=== PATIENT | female | born 1955 | race Caucasian/White ===

== ENCOUNTER 2017-12-06 16:06 | Inpatient (IN) | payer BC ==
--- NOTE | 2017-12-06 16:53 | PDOC ---
History of Present Illness - General History Source: Patient Exam Limitations: No Limitations - History of Present Illness Initial Comments: 12/06/17 17:52 The patient is a 62 year old female, with a significant PMH of Afib, Nonobstructive Diabetes, HTN and Hyperlipidemia who presents to the emergency department with Lightheadedness today. The patient reports she had 2 episodes of lightheadedness accompanied with jitteriness, nervousness, which is the primary reason for seeking care today. The patient reports shes been having a productive cough with yellow phlegm for the past one month. The patient reports going to Dr. Ureña about a month ago to get her cough checked out and was diagnosed with pneumonia on 11/26 and again on repeat X-ray on 12/04. She was prescribed on antibiotics and prednisone. She also reports the use of albuterol which she states opens up her lungs. The patient reports SOB during episodes of coughing, lying down which is especially worse today. The patient also reports chest pain and chest tightness when lying flat. The patient reports she has experienced chills but denies fever. Denies fever loss of conscious, head injury, or any trauma. The patient denies headache and dizziness. Denies fever, nausea, vomit, diarrhea and constipation. Denies dysuria, frequency, urgency and hematuria. Allergies: NKA Social history: Former Smoker and denies the use to alcohol or recreational drugs PCP: Dr. Adeline Uerña <Homa Jay - Last Filed: 12/06/17 18:12> <Carol Barclay - Last Filed: 12/06/17 19:03> - General Chief Complaint: Lightheaded Stated Complaint: RESPIRATORY Time Seen by Provider: 12/06/17 16:53 Past History <Homa Jay - Last Filed: 12/06/17 18:12> - Past Medical History Cardiac Disorders: Yes (A-FIB) COPD: No Diabetes: Yes HTN: Yes - Suicide/Smoking/Psychosocial Hx Smoking Status: Yes Smoking History: Former smoker Have you smoked in the past 12 months: No Number of Cigarettes Smoked Daily: 0 If you are a former smoker, when did you quit?: 20YRS AGO Information on smoking cessation initiated: No Hx Alcohol Use: No Drug/Substance Use Hx: No <Carol Barclay - Last Filed: 12/06/17 19:03> - Past Medical History Allergies/Adverse Reactions: Allergies Allergy/AdvReac Type Severity Reaction Status Date / Time No Known Allergies Allergy Verified 12/06/17 16:11 Home Medications: Ambulatory Orders Atorvastatin Ca [Lipitor (*)] 10 mg PO HS 02/17/13 metFORMIN HCL [Glucophage] 500 mg PO BID 02/17/13 Aspirin [ASA -] 81 mg PO DAILY 12/06/17 Cholecalciferol (Vitamin D3) [Vitamin D3 -] 1,000 unit PO DAILY 12/06/17 Review of Systems - Review of Systems Able to Perform ROS?: Yes Comments:: 12/06/17 17:54 GENERAL/CONSTITUTIONAL: (+) chills No fever. No weakness. HEAD, EYES, EARS, NOSE AND THROAT: No change in vision. No ear pain or discharge. No sore throat. CARDIOVASCULAR: (+) chest pain and shortness of breath. RESPIRATORY: (+) Productive cough with yellow phlegm. wheezing, or hemoptysis. GASTROINTESTINAL: No nausea, vomiting, diarrhea or constipation. GENITOURINARY: No dysuria, frequency, or change in urination. MUSCULOSKELETAL: No joint or muscle swelling or pain. No neck or back pain. SKIN: No rash NEUROLOGIC: (+) Lightheadedness. No headache, vertigo, loss of consciousness, or change in strength/sensation. ENDOCRINE: No increased thirst. No abnormal weight change. HEMATOLOGIC/LYMPHATIC: No anemia, easy bleeding, or history of blood clots. ALLERGIC/IMMUNOLOGIC: No hives or skin allergy. <Homa Jay - Last Filed: 12/06/17 18:12> *Physical Exam - Vital Signs Last Vital Signs Temp Pulse Resp BP Pulse Ox 98 F 85 19 147/81 98 12/06/17 16:11 12/06/17 16:11 12/06/17 16:11 12/06/17 16:11 12/06/17 16:11 - Physical Exam Comments: 12/06/17 18:04 GENERAL: Awake, alert, and fully oriented, in no acute distress HEAD: No signs of trauma EYES: PERRLA, EOMI, sclera anicteric, conjunctiva clear ENT: Auricles normal inspection, hearing grossly normal, nares patent, oropharynx clear without exudates. Moist mucosa NECK: Normal ROM, supple, no lymphadenopathy, JVD, or masses LUNGS: Breath sounds equal, clear to auscultation bilaterally. No wheezes, and no crackles HEART: Regular rate and rhythm, normal S1 and S2, no murmurs, rubs or gallops ABDOMEN: Soft, nontender, normoactive bowel sounds. No guarding, no rebound. No masses EXTREMITIES: Normal range of motion, no edema. No clubbing or cyanosis. No cords, erythema, or tenderness NEUROLOGICAL: Cranial nerves II through XII grossly intact. Normal speech. SKIN: Warm, Dry, normal turgor, no rashes or lesions noted. <Homa Jay - Last Filed: 12/06/17 18:12> - Vital Signs Last Vital Signs Temp Pulse Resp BP Pulse Ox 98 F 85 19 147/81 98 12/06/17 16:11 12/06/17 16:11 12/06/17 16:11 12/06/17 16:11 12/06/17 16:11 <Carol Barclay - Last Filed: 12/06/17 19:03> Heart Score/ECG Review - ECG Intrepretation Comment:: 12/06/17 18:12 The ECG was read by Dr. Barclay at 18:09pm Atrial Fibrillation Vent rate: 93 bpm QTc: 469 ms <Homa Jay - Last Filed: 12/06/17 18:12> ED Treatment Course - LABORATORY CBC & Chemistry Diagram: 12/06/17 18:08 12/06/17 18:08 <Carol Barclay - Last Filed: 12/06/17 19:03> Medical Decision Making - Medical Decision Making 12/06/17 18:25 Pt presents to the ED complaining of cough and shortness of breath that have been persistent for over a month despite multiple courses of antibiotics for pneumonia. Radiologic evidence of PNA from 12/04. Patient denies fever, nausea or vomiting, but does complain of persistent cough, shortness of breath and lightheadness. Will check labs and admit to medicine for persistent PNA. <Carol Barclay - Last Filed: 12/06/17 19:03> *DC/Admit/Observation/Transfer - Attestations Scribe Attestion: 12/06/17 18:04 Documentation prepared by Homa Jay, acting as medical auditor for Carol Barclay MD. <Homa Jay - Last Filed: 12/06/17 18:12> - Discharge Dispostion Admit: Yes <Carol Barclay - Last Filed: 12/06/17 19:03> Diagnosis at time of Disposition: Pneumonia Qualifiers: Pneumonia type: due to unspecified organism Laterality: right Lung location: middle lobe of lung Qualified Code(s): J18.1 - Lobar pneumonia, unspecified organism - Discharge Dispostion Condition at time of disposition: Good - Referrals Referrals: Vanessa Coreas MD [Primary Care Provider] - - Patient Instructions - Post Discharge Activity
[2017-12-06 18:22] LABS: BASO % 0.3 % (0-2.0); EOS % 1.6 % (0-4.5); HEMATOCRIT 45.7 % (32.4-45.2); HEMOGLOBIN 14.9 GM/dL (10.7-15.3); MCH 28.9 pg (25.7-33.7); MCHC 32.7 g/dl (32.0-36.0); MEAN CELL VOLUME 88.3 fl (80-96); MEAN PLT VOLUME 7.2 fl (7.5-11.1); NEUT % 49.1 % (42.8-82.8); PLATELET COUNT 362 K/MM3 (134-434); RBC 5.17 M/mm3 (3.60-5.2); RDW 14.2 % (11.6-15.6); WHITE BLOOD COUNT 10.5 K/mm3 (4.0-10.0)
[2017-12-06 18:25] LABS: URINE APPEARANCE CLEAR; URINE BILIRUBIN NEGATIVE (<2.0 mg/dL); URINE BLOOD NEGATIVE (NEGATIVE); URINE COLOR COLORLESS; URINE GLUCOSE (UA) NEGATIVE (NEGATIVE); URINE KETONE NEGATIVE (NEGATIVE); URINE LEUK ESTERASE NEGATIVE (NEGATIVE); URINE NITRITE NEGATIVE (NEGATIVE); URINE PROTEIN NEGATIVE (NEGATIVE); URINE UROBILINOGEN NEGATIVE mg/dL (0.2-1.0)
[2017-12-06 18:46] LABS: ANION GAP 10 (8-16); BILIRUBIN,TOTAL 0.3 mg/dL (0.2-1.0); BLOOD UREA NITROGEN 14 mg/dL (7-18); CALCIUM 9.6 mg/dL (8.5-10.1); CHLORIDE 102 mmol/L (98-107); CO2 27 mmol/L (21-32); CREATININE 0.8 mg/dL (0.55-1.02); GLUCOSE,RANDOM 119 mg/dL (74-106); SGOT/AST 11 U/L (15-37); SGPT/ALT 30 U/L (12-78); SODIUM 139 mmol/L (136-145)
[2017-12-06 18:50] LABS: ALK PHOS 61 U/L (45-117)
[2017-12-06] MEDS ORDERED: CEFTRIAXONE 1,000 MG in DEXTROSE 5%-WATER - 50 ML IVPB ONE (19:02)
[2017-12-06] MEDS ORDERED: SODIUM CHLORIDE 0.9% 500 ML INFUS.BAG IV ONE (19:08)
[2017-12-06] MEDS ORDERED: CEFTRIAXONE 1 GM/50 ML BAG ONE (19:17)
[2017-12-06] MEDS ORDERED: ACETAMINOPHEN 325 MG TABLET (FP) PO PRN (20:19)
[2017-12-06] MEDS ORDERED: ALBUTEROL SO4 2.5/IPRATROPIUM 0.5 INH SOL 3 ML VIAL.NEB. NEB PRN (20:23)
[2017-12-06] MEDS ORDERED: predniSONE 20 MG TABLET (UD) PO ONE (20:26)
[2017-12-06] MEDS ORDERED: ATORVASTATIN CA 10 MG TABLET (FP) PO ONE (20:28)
--- NOTE | 2017-12-06 20:51 | HP ---
CHIEF COMPLAINT: PCP: HISTORY OF PRESENT ILLNESS: 62 y/o F presented to ED c/o productive cough with yellow sputum with associated chest pain in lower posterior thorax for one month. Patient reports being on Azithromycin and then levofloxacin currently in her second rounds of treatment with no improvement. She also was prescribed prednisone and albuterol previously. Recent Travel:None PAST MEDICAL HISTORY: DM2 on metformin, DLP, low vitamin D PAST SURGICAL HISTORY:Left shoulder surgery s/p dislocation Social History: Smoking:No, smokes Alcohol:None Drugs: None Family History: Allergies No Known Allergies Allergy (Verified 12/06/17 16:11) HOME MEDICATIONS: Home Medications Medication Instructions Recorded Atorvastatin Ca [Lipitor (*)] 10 mg PO HS 02/17/13 metFORMIN HCL [Glucophage] 500 mg PO BID 02/17/13 Aspirin [ASA -] 81 mg PO DAILY 12/06/17 Cholecalciferol (Vitamin D3) 1,000 unit PO DAILY 12/06/17 [Vitamin D3 -] REVIEW OF SYSTEMS CONSTITUTIONAL: chills, Absent: fever, diaphoresis, generalized weakness, malaise, loss of appetite, weight change HEENT: nasal congestion Absent: rhinorrhea, , throat pain, throat swelling, difficulty swallowing, mouth swelling, ear pain, eye pain, visual changes CARDIOVASCULAR: Absent: chest pain, syncope, palpitations, irregular heart rate, lightheadedness , peripheral edema RESPIRATORY: Absent: cough, shortness of breath, dyspnea with exertion, orthopnea, wheezing, stridor, hemoptysis GASTROINTESTINAL: Absent: abdominal pain, abdominal distension, nausea, vomiting, diarrhea, constipation, melena, hematochezia GENITOURINARY: Absent: dysuria, frequency, urgency, hesitancy, hematuria, flank pain, genital pain MUSCULOSKELETAL: Absent: myalgia, arthralgia, joint swelling, back pain, neck pain SKIN: Absent: rash, itching, pallor HEMATOLOGIC/IMMUNOLOGIC: Absent: easy bleeding, easy bruising, lymphadenopathy, frequent infections ENDOCRINE: Absent: unexplained weight gain, unexplained weight loss, heat intolerance, cold intolerance NEUROLOGIC: Absent: headache, focal weakness or paresthesias, dizziness, unsteady gait, seizure, mental status changes, bladder or bowel incontinence PSYCHIATRIC: Absent: anxiety, depression, suicidal or homicidal ideation, hallucinations. PHYSICAL EXAMINATION Vital Signs - 24 hr 12/06/17 12/06/17 16:11 20:19 Temperature 98 F 97.8 F Pulse Rate 85 Pulse Rate [ 96 H Left Radial] Respiratory 19 18 Rate Blood Pressure 147/81 Blood Pressure 125/80 [Right Arm] O2 Sat by Pulse 98 100 Oximetry (%) GENERAL: Awake, alert, and fully oriented, in no acute distress. HEAD: Normal with no signs of trauma. EYES: Pupils equal, round and reactive to light, extraocular movements intact, sclera anicteric, conjunctiva clear. No lid lag. EARS, NOSE, THROAT: Ears normal, nares patent, erythematous nasal turbinates, oropharynx clear without exudates. Moist mucous membranes. NECK: Normal range of motion, supple without lymphadenopathy, JVD, or masses. LUNGS: Breath sounds equal, clear to auscultation bilaterally. Wheezes, and no crackles. No accessory muscle use. HEART: Regular rate and rhythm, normal S1 and S2 without murmur, rub or gallop. ABDOMEN: Soft, nontender, not distended, normoactive bowel sounds, no guarding, no rebound, no masses. No hepatomegaly or splenomegaly. MUSCULOSKELETAL: Normal range of motion at all joints. No bony deformities or tenderness. No CVA tenderness. UPPER EXTREMITIES: 2+ pulses, warm, well-perfused. No cyanosis. No clubbing. No peripheral edema. LOWER EXTREMITIES: 2+ pulses, warm, well-perfused. No calf tenderness. No peripheral edema. NEUROLOGICAL: Cranial nerves II-XII intact. Normal speech. Normal gait. PSYCHIATRIC: Cooperative. Good eye contact. Appropriate mood and affect. SKIN: Warm, dry, normal turgor, no rashes or lesions noted, normal capillary refill. Laboratory Results - last 24 hr 12/06/17 12/06/17 12/06/17 18:08 18:08 18:08 WBC 10.5 H D RBC 5.17 Hgb 14.9 D Hct 45.7 H MCV 88.3 MCH 28.9 MCHC 32.7 RDW 14.2 Plt Count 362 MPV 7.2 L Neutrophils % 49.1 Lymphocytes % 40.0 D Monocytes % 9.0 Eosinophils % 1.6 Basophils % 0.3 Sodium 139 Potassium 4.0 Chloride 102 Carbon Dioxide 27 Anion Gap 10 BUN 14 Creatinine 0.8 Creat Clearance w eGFR > 60 Random Glucose 119 H Lactic Acid 2.2 H* Calcium 9.6 Total Bilirubin 0.3 D AST 11 L ALT 30 Alkaline Phosphatase 61 Creatine Kinase 36 Troponin I < 0.02 Total Protein 8.0 Albumin 4.0 Urine Color Urine Appearance Urine pH Ur Specific [place] Urine Protein Urine Glucose (UA) Urine Ketones Urine Blood Urine Nitrite Urine Bilirubin Urine Urobilinogen Ur Leukocyte Esterase 12/06/17 18:08 WBC RBC Hgb Hct MCV MCH MCHC RDW Plt Count MPV Neutrophils % Lymphocytes % Monocytes % Eosinophils % Basophils % Sodium Potassium Chloride Carbon Dioxide Anion Gap BUN Creatinine Creat Clearance w eGFR Random Glucose Lactic Acid Calcium Total Bilirubin AST ALT Alkaline Phosphatase Creatine Kinase Troponin I Total Protein Albumin Urine Color Colorless Urine Appearance Clear Urine pH 7.0 D Ur Specific [place] 1.002 Urine Protein Negative Urine Glucose (UA) Negative Urine Ketones Negative Urine Blood Negative Urine Nitrite Negative Urine Bilirubin Negative Urine Urobilinogen Negative Ur Leukocyte Esterase Negative ASSESSMENT/PLAN: Bronchitis r/o Pneumonia Ceftriaxone 1G q12h Duoneb q6h Prednisone 40mg daily Sputum culture Lactic acidosis - Continue IVF NS and Repeat lactic acid Possibly secondary to infection vs medication, cotninue to hold metformin. DM2- RISS ACHS DLP- Atorvastatin 10mg Visit type - Emergency Visit Emergency Visit: Yes ED Registration Date: 12/06/17 Care time: The patient presented to the Emergency Department on the above date and was hospitalized for further evaluation of their emergent condition. - New Patient This patient is new to me today: Yes Date on this admission: 12/11/17 - Critical Care Critical Care patient: No Hospitalist Screening - Colonoscopy Questionnaire Colonoscopy Questionnaire: Colonoscopy Questionnaire
[2017-12-06] MEDS ORDERED: predniSONE 20 MG TABLET (UD) ONE (22:45)
[2017-12-06] MEDS: INSULIN SLIDING SCALE (NOVOLOG) 1 VIAL SQ SCH (23:14)
[2017-12-07 00:28] VITALS: BMI 35.9
[2017-12-07] MEDS: SODIUM CHLORIDE 1,000 ML IV SCH ×2 (00:35→20:03)
[2017-12-07] MEDS: INSULIN SLIDING SCALE (NOVOLOG) 1 VIAL SQ SCH ×5 (06:30→22:49)
[2017-12-07 09:14] LABS: HEMOGLOBIN 13.8 GM/dL (10.7-15.3); MCH 29.2 pg (25.7-33.7); MCHC 32.8 g/dl (32.0-36.0); MEAN CELL VOLUME 89.1 fl (80-96); MEAN PLT VOLUME 6.9 fl (7.5-11.1); PLATELET COUNT 363 K/MM3 (134-434); RBC 4.71 M/mm3 (3.60-5.2); RDW 14.4 % (11.6-15.6); WHITE BLOOD COUNT 9.1 K/mm3 (4.0-10.0)
--- NOTE | 2017-12-07 09:19 | EKG ---
Test Reason : Blood Pressure : / mmHG Vent. Rate : 103 BPM Atrial Rate : 115 BPM P-R Int : 000 ms QRS Dur : 114 ms QT Int : 372 ms P-R-T Axes : 000 -04 126 degrees QTc Int : 487 ms ATRIAL FLUTTER WITH RAPID VENTRICULAR RESPONSE INCOMPLETE LEFT BUNDLE BRANCH BLOCK MODERATE VOLTAGE CRITERIA FOR LVH, MAY BE NORMAL VARIANT ABNORMAL ECG Confirmed by MIGUEL ROBLES, ALLIE ([id number]) on 12/07/2017 9:18:37 AM Referred By: Confirmed By:ALLIE RIVERA MD
[2017-12-07] MEDS ORDERED: INSULIN (NOVOLOG) ASPART 100 UNITS/ML 10ML VIAL ONE ×2 (09:24→17:13)
[2017-12-07] MEDS ORDERED: DEXTROSE 5%-WATER - 50 ML IVPB ONE (10:53)
[2017-12-07] MEDS ORDERED: cefTRIAXone SODIUM 1 GM VIAL ONE (10:53)
[2017-12-07] MEDS: ASPIRIN 81 MG CHEWABLE TABLETS PO SCH (10:56)
[2017-12-07] MEDS: CEFTRIAXONE 1 GM in DEXTROSE 5%-WATER - 50 ML IVPB SCH (11:00)
--- NOTE | 2017-12-07 12:36 | PN ---
Progress Note, Physician Chief Complaint: Pt has been coughing for more than a month-- now its more productove Has received antibiotics in the past This time she has dizziness, felt jittery and lightheaded No nausea no chest pain, palpitations no fever - Current Medication List Current Medications: Active Medications Acetaminophen (Tylenol -) 650 mg PO Q6H PRN PRN Reason: FEVER Last Admin: 12/07/17 06:30 Dose: 650 mg Albuterol/Ipratropium (Duoneb -) 1 amp NEB Q6H PRN PRN Reason: SHORTNESS OF BREATH Aspirin (Asa -) 81 mg PO DAILY [facility] Last Admin: 12/07/17 10:56 Dose: 81 mg Atorvastatin Calcium (Lipitor -) 10 mg PO HS [facility] Ceftriaxone Sodium 1 gm/ (Dextrose) 50 mls @ 100 mls/hr IVPB DAILY [facility] Last Admin: 12/07/17 11:00 Dose: 100 mls/hr Sodium Chloride (Normal Saline -) 1,000 mls @ 100 mls/hr IV ASDIR [facility] Last Admin: 12/07/17 00:35 Dose: 100 mls/hr Insulin Aspart (Novolog Vial Sliding Scale -) 1 vial SQ ACHS [facility] PRN Reason: Protocol Last Admin: 12/07/17 12:08 Dose: Not Given - Objective Vital Signs: Vital Signs Temperature 98.5 F 12/07/17 06:00 Pulse Rate 104 H 12/07/17 06:00 Respiratory Rate 20 12/07/17 06:00 Blood Pressure 150/73 12/07/17 06:00 O2 Sat by Pulse Oximetry (%) 97 12/07/17 00:18 Constitutional: Yes: No Distress Cardiovascular: Yes: Pulse Irregular. No: Murmur Respiratory: Yes: Diminished Gastrointestinal: Yes: Normal Bowel Sounds, Soft, Abdomen, Obese. No: Tenderness Edema: No Labs: CBC, BMP 12/07/17 08:30 12/06/17 18:08 Problem List - Problems (1) New onset a-fib Code(s): I48.91 - UNSPECIFIED ATRIAL FIBRILLATION (2) Diabetes Code(s): E11.9 - TYPE 2 DIABETES MELLITUS WITHOUT COMPLICATIONS (3) Pneumonia Code(s): J18.9 - PNEUMONIA, UNSPECIFIED ORGANISM Qualifiers: Pneumonia type: due to unspecified organism Laterality: right Lung location: middle lobe of lung Qualified Code(s): J18.1 - Lobar pneumonia, unspecified organism Assessment/Plan PLAN New onset Afib start Lovenox Rate control with Toprol Transfer to Tele Cardiology eval IV antibiotics-- empiric-- will check CT chest Echo check Thyroid function tests and cardiac enzymes Albuterol as needed
[2017-12-07] MEDS: metoPROLOL SUCCINATE 25 MG TAB.SR.24H (FP) PO SCH (14:56)
[2017-12-07] MEDS: ENOXAPARIN NA (PORCINE) 80 MG/0.8 ML DISP.SYRIN SQ SCH ×2 (16:00→22:50)
[2017-12-07] MEDS: metFORMIN HCL 500 MG TABLET (FP) PO SCH (17:15)
[2017-12-07] MEDS ORDERED: PT OWN MED DRAWER 7, Y5N ONE (20:10)
[2017-12-07] MEDS ORDERED: ATORVASTATIN CA 10 MG TABLET (FP) PO SCH (22:00)
[2017-12-08] MEDS: SODIUM CHLORIDE 1,000 ML IV SCH ×3 (00:15→16:58)
[2017-12-08] MEDS: INSULIN SLIDING SCALE (NOVOLOG) 1 VIAL SQ SCH ×4 (06:23→21:13)
[2017-12-08] MEDS: metFORMIN HCL 500 MG TABLET (FP) PO SCH ×2 (06:25→16:58)
[2017-12-08] MEDS ORDERED: cefTRIAXone SODIUM 1 GM VIAL ONE (09:21)
[2017-12-08] MEDS ORDERED: DEXTROSE 5%-WATER - 50 ML IVPB ONE (09:22)
[2017-12-08] MEDS: metoPROLOL SUCCINATE 25 MG TAB.SR.24H (FP) PO SCH (09:32)
[2017-12-08] MEDS: ASPIRIN 81 MG CHEWABLE TABLETS PO SCH (09:32)
[2017-12-08] MEDS: ENOXAPARIN NA (PORCINE) 80 MG/0.8 ML DISP.SYRIN SQ SCH (09:32)
[2017-12-08] MEDS: CEFTRIAXONE 1 GM in DEXTROSE 5%-WATER - 50 ML IVPB SCH (09:32)
--- NOTE | 2017-12-08 09:45 | CON.CARD ---
Consult Consult Specialty:: cardio - History of Present Illness Chief Complaint: cough, jittery/LH History of Present Illness: 62 yo female presented with cough. has cough for 1 mo, persists despite ABX tx as outpt. became more productive. recently noted she felt jittery and lightheaded when walking. mostly only sob during coughing fits, ? at times sob without coughing she isn't certain. + audible wheezing at times--o/w denies signif asthma/wheeze history. no cp. no ankle/feet swelling. noted to be in rapid AF on 12/[address] mcclelland--toprol and lovenox started pt previously was followed by dr haynes cardiology, recently switched to dr cooley prior h/o HTN, on meds for long time. presyncope with SBP 100s range in 2017. meds d/c'd, sx's resolved, outpt BP range was stable. PMH: HTN JANIYA--on cpap HPL DM2 - Past Medical History ...: No - Alcohol/Substance Use Hx Alcohol Use: No - Smoking History Smoking history: Former smoker Have you smoked in the past 12 months: No Aproximately how many cigarettes per day: 0 If you are a former smoker, when did you quit?: 20YRS AGO Home Medications - Allergies Allergies/Adverse Reactions: Allergies Allergy/AdvReac Type Severity Reaction Status Date / Time No Known Allergies Allergy Verified 12/06/17 16:11 - Home Medications Home Medications: Ambulatory Orders Atorvastatin Ca [Lipitor (*)] 10 mg PO HS 02/17/13 metFORMIN HCL [Glucophage] 500 mg PO BID 02/17/13 Aspirin [ASA -] 81 mg PO DAILY 12/06/17 Cholecalciferol (Vitamin D3) [Vitamin D3 -] 1,000 unit PO DAILY 12/06/17 Review of Systems - Review of Systems Constitutional: denies: Chills, Fever Eyes: denies: Eye Pain HENT: denies: Nasal Congestion Neck: denies: Stiffness Cardiovascular: denies: Palpitations Respiratory: denies: Orthopnea, PND Gastrointestinal: denies: Diarrhea, Rectal Bleeding Genitourinary: denies: Burning, Hematuria Musculoskeletal: denies: Muscle Pain Integumentary: denies: Rash Neurological: reports: Dizziness. denies: Numbness, Seizure, Syncope Endocrine: denies: Excessive Sweating Hematology/Lymphatic: denies: Excessive Bleeding Vital Signs: Vital Signs Temperature 97.7 F 12/08/17 06:00 Pulse Rate 93 H 12/08/17 06:00 Respiratory Rate 18 12/08/17 06:00 Blood Pressure 120/54 12/08/17 06:00 O2 Sat by Pulse Oximetry (%) 98 12/07/17 20:15 Constitutional: Yes: Well Nourished, No Distress Eyes: No: Sclera Icterus HENT: No: Nasal Congestion Neck: No: Decreased ROM Respiratory: Yes: CTA Bilaterally. No: Accessory Muscle Use, Rales, Wheezes Gastrointestinal: Yes: Normal Bowel Sounds. No: Distention, Hepatomegaly, Palpable Mass, Tenderness Cardiovascular: Yes: Pulse Irregular JVD: No Carotid Bruit: No PMI: Non-Displaced Heart Sounds: Yes: S1, S2. No: Gallop Murmur: No: Systolic Murmur, Diastolic Murmur Musculoskeletal: Yes: Other (No kyphosis) Extremities: No: Cold, Cyanosis Edema: No Peripheral Pulses: 2+ Left Carotid, 2+ Right Carotid, 2+ Left Doralis Pedis, 2+ Right Dorsalis Pedis Integumentary: No: Jaundice Neurological: Yes: Alert, Oriented (x3) Psychiatric: No: Agitated - Other Data Labs, Other Data: CBC, BMP 12/07/17 08:30 12/06/17 18:08 Troponin, BNP 12/07/17 13:30 Troponin I < 0.02 Troponin, BNP 12/07/17 13:30 Troponin I < 0.02 Laboratory Tests 12/06/17 12/06/17 12/07/17 18:08 20:48 08:30 WBC 9.1 Hgb 13.8 Plt Count 363 Sodium 139 Potassium 4.0 Carbon Dioxide 27 BUN 14 Creatinine 0.8 Lactic Acid 2.6 H* AST 11 L ALT 30 Troponin I < 0.02 12/07/17 13:30 WBC Hgb Plt Count Sodium Potassium Carbon Dioxide BUN Creatinine Lactic Acid AST ALT Troponin I < 0.02 Assessment/Plan Echo 10/18: nl EF. nl RV. +LAE. Stress Echo 2016: 10 METs. + ST's. no ischemia. MPI 2013: 7 METs. + STs (non-diagnostic vs baseline). no ischemia. nl EF. Carotids 10/18: minimal, nonob plaque Holter 11/15: NSR, freq APCs, brief atrial runs. no laura.s ECG 12/06: rapid atrial flutter. LVH with repol abn.s; ST depressions slightly more pronounced vs prior office ECG 10/2016. no path q's chest CT: report pending tele: afib to 120s 12/07 pm. 12/08 HRs 80s-100s with brief 130s at 9:04 am afib: -HR rapid, toprol 25 started here. HRs have responded (again rapid this am just prior to AM toprol dose due). -change toprol to 50mg am, 25mg pm -would minimize albuterol use to the extent possible -TSH borderline low--per pmd -if HR well controlled with ambulation tomorrow, and no more sx's, will plan to send home on metoprolol (if wheezing persists once respiratory infection resolves, or incr sob develops here, may need to reduce BB dose and add diltiazem). -CHADS VASC 3, to become 2 at her next birthday. pt denies h/o falls or hi risk for such, no prior PUD or GIB--agree with AC. -stop lovenox and ASA. start eliquis. -no sx's of acute cardiac ischemia. trop neg x 2. no ischemia 2016. -echo WNL 10/18--will rpt study productive cough, bronchitis vs PNA: -per pmd HTN: -presyncope on prior med regimen -office bp recently stable off meds, with resolution of dizzy sx's -bp's here currently controlled HPL: -cont home atorva DM: -on orals -per pmd
--- NOTE | 2017-12-08 11:01 | PN ---
Progress Note, Physician History of Present Illness: pt seen/ examined.. feels better decreased cough - Current Medication List Current Medications: Active Medications Acetaminophen (Tylenol -) 650 mg PO Q6H PRN PRN Reason: FEVER Last Admin: 12/07/17 06:30 Dose: 650 mg Albuterol/Ipratropium (Duoneb -) 1 amp NEB Q6H PRN PRN Reason: SHORTNESS OF BREATH Last Admin: 12/08/17 06:40 Dose: 1 amp Aspirin (Asa -) 81 mg PO DAILY [facility] Last Admin: 12/08/17 09:32 Dose: 81 mg Atorvastatin Calcium (Lipitor -) 10 mg PO HS [facility] Last Admin: 12/07/17 22:50 Dose: 10 mg Enoxaparin Sodium (Lovenox -) 80 mg SQ BID [facility] Last Admin: 12/08/17 09:32 Dose: 80 mg Ceftriaxone Sodium 1 gm/ (Dextrose) 50 mls @ 100 mls/hr IVPB DAILY [facility] Last Admin: 12/08/17 09:32 Dose: 100 mls/hr Sodium Chloride (Normal Saline -) 1,000 mls @ 100 mls/hr IV ASDIR [facility] Last Admin: 12/08/17 06:25 Dose: 100 mls/hr Insulin Aspart (Novolog Vial Sliding Scale -) 1 vial SQ ACHS [facility] PRN Reason: Protocol Last Admin: 12/08/17 06:23 Dose: Not Given Metformin HCl (Glucophage -) 500 mg PO BID@0700,1630 [facility] Last Admin: 12/08/17 06:25 Dose: 500 mg Metoprolol Succinate (Toprol Xl -) 25 mg PO DAILY [facility] Last Admin: 12/08/17 09:32 Dose: 25 mg - Objective Vital Signs: Vital Signs Temperature 100.0 F H 12/08/17 10:00 Pulse Rate 100 H 12/08/17 10:00 Respiratory Rate 18 12/08/17 10:00 Blood Pressure 131/71 12/08/17 10:00 O2 Sat by Pulse Oximetry (%) 98 12/08/17 09:00 Constitutional: Yes: No Distress, Calm Eyes: Yes: Conjunctiva Clear Neck: Yes: Supple Cardiovascular: Yes: Pulse Irregular. No: Regular Rate and Rhythm Respiratory: Yes: Diminished Gastrointestinal: Yes: Soft. No: Rectal Bleeding Edema: No Neurological: Yes: Alert Labs: CBC, BMP 12/07/17 08:30 12/06/17 18:08 - ....Imaging Cat Scan: Report Reviewed Problem List - Problems (1) Diabetes Code(s): E11.9 - TYPE 2 DIABETES MELLITUS WITHOUT COMPLICATIONS (2) New onset a-fib Code(s): I48.91 - UNSPECIFIED ATRIAL FIBRILLATION (3) Pneumonia Code(s): J18.9 - PNEUMONIA, UNSPECIFIED ORGANISM Qualifiers: Pneumonia type: due to unspecified organism Laterality: right Lung location: middle lobe of lung Qualified Code(s): J18.1 - Lobar pneumonia, unspecified organism Assessment/Plan New onset Afib Eliquis cardiology on case Rate control with Toprol continue present care monitor on tele abx for pneumonia will follow. daily oob- chair
[2017-12-08] MEDS ORDERED: metoPROLOL SUCCINATE 25 MG TAB.SR.24H (FP) PO ONE (11:22)
[2017-12-08] MEDS ORDERED: ALBUTEROL SO4 2.5/IPRATROPIUM 0.5 INH SOL 3 ML VIAL.NEB. NEB PRN (19:19)
[2017-12-08] MEDS ORDERED: SODIUM CHLORIDE 1,000 ML IV SCH (19:19)
[2017-12-08] MEDS ORDERED: metoPROLOL SUCCINATE 25 MG TAB.SR.24H (FP) PO SCH ×2 (22:00)
[2017-12-08] MEDS: APIXABAN 5 MG TABLET PO SCH (23:25)
[2017-12-08] MEDS: ATORVASTATIN CA 10 MG TABLET (FP) PO SCH (23:25)
[2017-12-09] MEDS: ACETAMINOPHEN 325 MG TABLET (FP) PO PRN ×2 (01:41→15:23)
[2017-12-09] MEDS: INSULIN SLIDING SCALE (NOVOLOG) 1 VIAL SQ SCH ×4 (06:08→23:24)
[2017-12-09] MEDS ORDERED: DEXTROSE 5%-WATER - 50 ML IVPB ONE (09:38)
[2017-12-09] MEDS ORDERED: cefTRIAXone SODIUM 1 GM VIAL ONE (09:38)
[2017-12-09] MEDS: CEFTRIAXONE 1 GM in DEXTROSE 5%-WATER - 50 ML IVPB SCH (09:41)
[2017-12-09] MEDS: APIXABAN 5 MG TABLET PO SCH ×2 (09:41→23:24)
[2017-12-09] MEDS: metFORMIN HCL 500 MG TABLET (FP) PO SCH ×2 (09:41→17:47)
--- NOTE | 2017-12-09 11:41 | PN ---
Progress Note, Physician Chief Complaint: feels well decreased cough no SOB has swelling in left hand, no pain no chest pain, palpitations no fever - Current Medication List Current Medications: Active Medications Acetaminophen (Tylenol -) 650 mg PO Q6H PRN PRN Reason: FEVER Last Admin: 12/09/17 01:41 Dose: 650 mg Albuterol/Ipratropium (Duoneb -) 1 amp NEB Q6H PRN PRN Reason: SHORTNESS OF BREATH Apixaban (Eliquis -) 5 mg PO BID [facility] Last Admin: 12/09/17 09:41 Dose: 5 mg Atorvastatin Calcium (Lipitor -) 10 mg PO HS [facility] Last Admin: 12/08/17 23:25 Dose: 10 mg Ceftriaxone Sodium 1 gm/ (Dextrose) 50 mls @ 100 mls/hr IVPB DAILY [facility] Last Admin: 12/09/17 09:41 Dose: 100 mls/hr Sodium Chloride (Normal Saline -) 1,000 mls @ 100 mls/hr IV ASDIR [facility] Last Admin: 12/08/17 23:25 Dose: 100 mls/hr Insulin Aspart (Novolog Vial Sliding Scale -) 1 vial SQ ACHS [facility] PRN Reason: Protocol Last Admin: 12/09/17 06:08 Dose: Not Given Metformin HCl (Glucophage -) 500 mg PO BID@0700,1630 [facility] Last Admin: 12/09/17 09:41 Dose: 500 mg Metoprolol Succinate (Toprol Xl -) 50 mg PO DAILY [facility] Last Admin: 12/09/17 09:41 Dose: 50 mg Metoprolol Succinate (Toprol Xl -) 25 mg PO HS [facility] Last Admin: 12/08/17 23:25 Dose: 25 mg - Objective Vital Signs: Vital Signs Temperature 98 F 12/09/17 08:43 Pulse Rate 90 12/09/17 08:43 Respiratory Rate 20 12/09/17 09:00 Blood Pressure 103/52 12/09/17 08:43 O2 Sat by Pulse Oximetry (%) 98 12/09/17 09:00 Constitutional: Yes: No Distress Cardiovascular: Yes: Pulse Irregular Respiratory: Yes: Diminished. No: Rales, Rhonchi, Wheezes Gastrointestinal: Yes: Normal Bowel Sounds, Soft, Abdomen, Obese. No: Tenderness Extremities: Yes: Other (left hand edema+, no tenderness, no erythema) Edema: No Labs: CBC, BMP 12/07/17 08:30 12/06/17 18:08 Problem List - Problems (1) New onset a-fib Code(s): I48.91 - UNSPECIFIED ATRIAL FIBRILLATION (2) Diabetes Code(s): E11.9 - TYPE 2 DIABETES MELLITUS WITHOUT COMPLICATIONS (3) Pneumonia Code(s): J18.9 - PNEUMONIA, UNSPECIFIED ORGANISM Qualifiers: Pneumonia type: due to unspecified organism Laterality: right Lung location: middle lobe of lung Qualified Code(s): J18.1 - Lobar pneumonia, unspecified organism Assessment/Plan PLAN New onset Afib on Eliquis Rate control with Toprol CT chest noted- d/w pt oob dc iv fluids Albuterol as needed
--- NOTE | 2017-12-09 12:03 | PN ---
Progress Note (short form) - Note Progress Note: CC: new onset afib S: no cp, palps, lightheadedness. still with sob, cough Current Medications Acetaminophen (Tylenol -) 650 mg PO Q6H PRN PRN Reason: FEVER Last Admin: 12/09/17 01:41 Dose: 650 mg Albuterol/Ipratropium (Duoneb -) 1 amp NEB Q6H PRN PRN Reason: SHORTNESS OF BREATH Apixaban (Eliquis -) 5 mg PO BID [facility] Last Admin: 12/09/17 09:41 Dose: 5 mg Atorvastatin Calcium (Lipitor -) 10 mg PO HS [facility] Last Admin: 12/08/17 23:25 Dose: 10 mg Ceftriaxone Sodium 1 gm/ (Dextrose) 50 mls @ 100 mls/hr IVPB DAILY [facility] Last Admin: 12/09/17 09:41 Dose: 100 mls/hr Insulin Aspart (Novolog Vial Sliding Scale -) 1 vial SQ ACHS [facility] PRN Reason: Protocol Last Admin: 12/09/17 06:08 Dose: Not Given Metformin HCl (Glucophage -) 500 mg PO BID@0700,1630 [facility] Last Admin: 12/09/17 09:41 Dose: 500 mg Metoprolol Succinate (Toprol Xl -) 50 mg PO DAILY [facility] Last Admin: 12/09/17 09:41 Dose: 50 mg Metoprolol Succinate (Toprol Xl -) 25 mg PO HS [facility] Last Admin: 12/08/17 23:25 Dose: 25 mg Vital Signs - 24 hr 12/08/17 12/08/17 12/08/17 14:00 21:00 22:00 Temperature 98.1 F 98.3 F Pulse Rate 88 94 H Respiratory 18 18 20 Rate Blood Pressure 115/61 137/57 O2 Sat by Pulse 98 Oximetry (%) 12/09/17 12/09/17 12/09/17 01:32 05:36 08:43 Temperature 98.6 F 98.7 F 98 F Pulse Rate 98 H 92 H 90 Respiratory 18 18 20 Rate Blood Pressure 110/56 124/66 103/52 O2 Sat by Pulse Oximetry (%) 12/09/17 09:00 Temperature Pulse Rate Respiratory 20 Rate Blood Pressure O2 Sat by Pulse 98 Oximetry (%) Intake & Output 12/07/17 12/08/17 12/09/17 12/10/17 07:59 07:59 07:59 07:59 Intake Total 900 1110 1870 Balance 900 1110 1870 Weight 184 lb 1 oz Constitutional: Yes: Well Nourished, No Distress Eyes: No: Sclera Icterus HENT: No: Nasal Congestion Neck: No: Decreased ROM Respiratory: Yes: diminshed air mov't. No: Accessory Muscle Use, Rales, Wheezes Gastrointestinal: Yes: Normal Bowel Sounds. No: Distention, Hepatomegaly, Palpable Mass, Tenderness Cardiovascular: Yes: Pulse Irregular JVD: No Carotid Bruit: No PMI: Non-Displaced Heart Sounds: Yes: S1, S2. No: Gallop Murmur: No: Systolic Murmur, Diastolic Murmur Musculoskeletal: Yes: Other (No kyphosis) Extremities: No: Cold, Cyanosis Edema: No Peripheral Pulses: 2+ Left Carotid, 2+ Right Carotid, 2+ Left Doralis Pedis, 2+ Right Dorsalis Pedis Integumentary: No: Jaundice Neurological: Yes: Alert, Oriented (x3) Psychiatric: No: Agitated - Other Data Labs, Other Data: no CBC, BMP today 12/07/17 08:30 12/06/17 18:08 Assessment/Plan Echo 10/18: nl EF. nl RV. +LAE. echo 11/2017: nl lv/rv size/fn. mod lae. 1+ mac/mr, mod tr. pasp 32. Stress Echo 2017: 10 METs. + ST's. no ischemia. MPI 2013: 7 METs. + STs (non-diagnostic vs baseline). no ischemia. nl EF. Carotids 10/18: minimal, nonob plaque Holter 11/15: NSR, freq APCs, brief atrial runs. no laura.s ECG 12/06: rapid atrial flutter. LVH with repol abn.s; ST depressions slightly more pronounced vs prior office ECG 10/2016. no path q's CT chest report reviewed: consolidation/ATX in RUL can be c/w PNA. trace peric effusion. tele: overall rate controlled afib. 62 yo with pmhx of basil on nasal cpap, niddm who p/w pna and new onset afib. afib: -HR rapid, toprol 25 started here. HRs have responded (again rapid in the am just prior to AM toprol dose due) --> changed toprol to 50mg am, 25mg pm -would minimize albuterol use to the extent possible -TSH borderline low--per pmd -if HR well controlled with ambulation tomorrow, and no more sx's, will plan to send home on metoprolol (if wheezing persists once respiratory infection resolves, or incr sob develops here, may need to reduce BB dose and add diltiazem). -CHADS VASC 3, to become 2 at her next birthday. pt denies h/o falls or hi risk for such, no prior PUD or GIB--agree with AC. -stopped lovenox and ASA. started eliquis. -no sx's of acute cardiac ischemia. trop neg x 2. no ischemia 2016. -echo WNL 10/18. Rpt study without sig abnormality, see above. - tsh abnormal but FT4 wnl. - 12/09: will try uptitrating toprol to 50 bid. lytes ordered for tomorrow. repletion prn. productive cough, bronchitis vs PNA: -per pmd HTN: -presyncope on prior med regimen -office bp recently stable off meds, with resolution of dizzy sx's -bp's here currently controlled, sometimes on lower end. monitor with uptitration of toprol. HPL: -cont home atorva lactic acidosis likely related to infection - resolved s/p abx, IVF basil - on cpap at home. consider resuming qhs while here if possible. DM: -on orals -per pmd
[2017-12-09] MEDS ORDERED: metoPROLOL SUCCINATE 25 MG TAB.SR.24H (FP) PO SCH (22:00)
[2017-12-09] MEDS ORDERED: PT OWN MED DRAWER 7, Y5N ONE (23:12)
[2017-12-09] MEDS: ATORVASTATIN CA 10 MG TABLET (FP) PO SCH (23:24)
[2017-12-10] MEDS: metFORMIN HCL 500 MG TABLET (FP) PO SCH (06:25)
[2017-12-10] MEDS: ACETAMINOPHEN 325 MG TABLET (FP) PO PRN (06:25)
[2017-12-10] MEDS: INSULIN SLIDING SCALE (NOVOLOG) 1 VIAL SQ SCH (06:26)
[2017-12-10 06:43] VITALS: BP 126/74; PULSE 99; TEMP 98.2
[2017-12-10 07:51] LABS: BASO % 0.6 % (0-2.0); EOS % 3.4 % (0-4.5); HEMATOCRIT 38.4 % (32.4-45.2); HEMOGLOBIN 12.6 GM/dL (10.7-15.3); LYMPH % 31.2 % (8-40); MCH 29.4 pg (25.7-33.7); MCHC 32.9 g/dl (32.0-36.0); MEAN CELL VOLUME 89.4 fl (80-96); MONO % 8.6 % (3.8-10.2); NEUT % 56.2 % (42.8-82.8); PLATELET COUNT 280 K/MM3 (134-434); RBC 4.29 M/mm3 (3.60-5.2); RDW 14.4 % (11.6-15.6); WHITE BLOOD COUNT 8.2 K/mm3 (4.0-10.0)
[2017-12-10 08:25] LABS: ANION GAP 8 (8-16); BLOOD UREA NITROGEN 15 mg/dL (7-18); CALCIUM 9.6 mg/dL (8.5-10.1); CHLORIDE 105 mmol/L (98-107); CO2 29 mmol/L (21-32); CREATININE 0.6 mg/dL (0.55-1.02); GLUCOSE,RANDOM 124 mg/dL (74-106); MAGNESIUM 2.1 mg/dL (1.8-2.4); POTASSIUM 4.7 mmol/L (3.5-5.1); SODIUM 142 mmol/L (136-145)
[2017-12-10] MEDS ORDERED: cefTRIAXone SODIUM 1 GM VIAL ONE (09:42)
[2017-12-10] MEDS ORDERED: DEXTROSE 5%-WATER - 50 ML IVPB ONE (09:42)
[2017-12-10] MEDS: CEFTRIAXONE 1 GM in DEXTROSE 5%-WATER - 50 ML IVPB SCH (10:07)
[2017-12-10] MEDS: APIXABAN 5 MG TABLET PO SCH (10:07)
--- NOTE | 2017-12-10 11:08 | DS ---
Physical Examination Vital Signs: Vital Signs Temperature 98.2 F 12/10/17 06:00 Pulse Rate 99 H 12/10/17 06:00 Respiratory Rate 18 12/10/17 08:28 Blood Pressure 126/74 12/10/17 06:00 O2 Sat by Pulse Oximetry (%) 94 L 12/10/17 08:28 Labs: CBC, BMP 12/10/17 07:00 12/10/17 07:00 Discharge Summary Reason For Visit: PNEUMONIA Current Active Problems Diabetes (Acute) New onset a-fib (Acute) Pneumonia (Acute) Condition: Good - Instructions Referrals: Vanessa Coreas MD [Primary Care Provider] - - Home Medications Comprehensive Discharge Medication List: Ambulatory Orders Atorvastatin Ca [Lipitor (*)] 10 mg PO HS 02/17/13 metFORMIN HCL [Glucophage] 500 mg PO BID 02/17/13 Aspirin [ASA -] 81 mg PO DAILY 12/06/17 Cholecalciferol (Vitamin D3) [Vitamin D3 -] 1,000 unit PO DAILY 12/06/17
--- NOTE | 2017-12-10 11:32 | PN ---
Progress Note (short form) - Note Progress Note: CC: new onset afib S: no cp, palps, sob, lightheadedness. Current Medications Generic Name Dose Route Start Last Admin Trade Name Courtney PRN Reason Stop Dose Admin Acetaminophen 650 mg 12/08/17 19:19 12/10/17 06:25 Tylenol - PO 650 mg Q6H PRN Administration FEVER Albuterol/Ipratropium 1 amp 12/08/17 19:19 12/09/17 12:49 Duoneb - NEB 1 amp Q6H PRN Administration SHORTNESS OF BREATH Apixaban 5 mg 12/08/17 22:00 12/10/17 10:07 Eliquis - PO 5 mg BID JUAN Administration Atorvastatin Calcium 10 mg 12/08/17 22:00 12/09/17 23:24 Lipitor - PO 10 mg HS JUAN Administration Ceftriaxone Sodium 1 gm/ 50 mls @ 100 mls/hr 12/09/17 10:00 12/10/17 10:07 Dextrose IVPB 100 mls/hr DAILY [facility]UAN Administration Insulin Aspart 1 vial 12/08/17 22:00 12/10/17 06:26 Novolog Vial Sliding Scale - SQ Not Given ACHS JUAN Protocol Metformin HCl 500 mg 12/07/17 16:30 12/10/17 06:25 Glucophage - PO 500 mg BID@0700,1630 JUAN Administration Metoprolol Succinate 50 mg 12/09/17 22:00 12/10/17 10:07 Toprol Xl - PO 50 mg BID JUAN Administration Vital Signs Period Temp Pulse Resp BP Sys/Gomes Pulse Ox Last 24 Hr 97.8 F-98.8 F 81-99 18-20 117-128/58-74 94-94 Constitutional: Yes: Well Nourished, No Distress Eyes: No: Sclera Icterus HENT: No: Nasal Congestion Neck: No: Decreased ROM Respiratory: Yes: diminshed air mov't. No: Accessory Muscle Use, Rales, Wheezes Gastrointestinal: Yes: Normal Bowel Sounds. No: Distention, Hepatomegaly, Palpable Mass, Tenderness Cardiovascular: Yes: Pulse Irregular JVD: No Heart Sounds: Yes: S1, S2. No: Gallop Murmur: No: Systolic Murmur, Diastolic Murmur Extremities: No: Cold, Cyanosis Edema: No Integumentary: No: Jaundice Neurological: Yes: Alert, Oriented (x3) Psychiatric: No: Agitated - Other Data Labs, Other Data: CBC, BMP 12/10/17 07:00 12/10/17 07:00 Assessment/Plan Echo 10/18: nl EF. nl RV. +LAE. echo 11/2017: nl lv/rv size/fn. mod lae. 1+ mac/mr, mod tr. pasp 32. Stress Echo 2016: 10 METs. + ST's. no ischemia. MPI 2013: 7 METs. + STs (non-diagnostic vs baseline). no ischemia. nl EF. Carotids 10/18: minimal, nonob plaque Holter 11/15: NSR, freq APCs, brief atrial runs. no laura.s ECG 12/06: rapid atrial flutter. LVH with repol abn.s; ST depressions slightly more pronounced vs prior office ECG 10/2016. no path q's CT chest report reviewed: consolidation/ATX in RUL can be c/w PNA. trace peric effusion. tele: overall rate controlled afib. 62 yo with pmhx of basil on nasal cpap, niddm who p/w pna and new onset afib. afib: -HR rapid, toprol 25 started here. HRs have responded (again rapid in the am just prior to AM toprol dose due) --> changed toprol to 50mg am, 25mg pm -would minimize albuterol use to the extent possible -TSH borderline low--per pmd -if HR well controlled with ambulation tomorrow, and no more sx's, will plan to send home on metoprolol (if wheezing persists once respiratory infection resolves, or incr sob develops here, may need to reduce BB dose and add diltiazem). -CHADS VASC 3, to become 2 at her next birthday. pt denies h/o falls or hi risk for such, no prior PUD or GIB--agree with AC. -stopped lovenox and ASA. started eliquis. -no sx's of acute cardiac ischemia. trop neg x 2. no ischemia 2016. -echo WNL 10/18. Rpt study without sig abnormality, see above. - tsh abnormal but FT4 wnl. - 12/09: will try uptitrating toprol to 50 bid. -12/10: rate controlled on current bb productive cough, bronchitis vs PNA: -per pmd HTN: -presyncope on prior med regimen -office bp recently stable off meds, with resolution of dizzy sx's -bp's here currently controlled, sometimes on lower end. monitor with uptitration of toprol. HPL: -cont home atorva lactic acidosis likely related to infection - resolved s/p abx, IVF basil - on cpap at home. consider resuming qhs while here if possible. DM: -on orals -per pmd cardiac toussaint remains stable
== END 2017-12-10 12:33 | disposition home or self-care (01) | DRG 194 ==
LOC: JER 16:06 → JERBED 19:04 → J6S 12-07 00:15 → J4S 12-07 20:43 → OBSVTOIN 12-08 12:01
PROVIDERS: ADMIT Internal Medicine; ATTEND Internal Medicine
DX: J18.9 Pneumonia, unspecified organism (principal); E87.2 Acidosis; E11.9 Type 2 diabetes mellitus without complications; I48.91 Unspecified atrial fibrillation; I10 Essential (primary) hypertension; G47.33 Obstructive sleep apnea (adult) (pediatric); E78.5 Hyperlipidemia, unspecified
CPT/HCPCS: 36415; 71250-TC; 80048; 80053; 81003; 82550; 82962; 83605; 83735; 84439; 84443; 84484; 85025; 85027; 87040; 87804; 87899; 93005; 93010; 93306-TC; 93971; 94010; 94640; 99285-25; G0378; J7030

== ENCOUNTER 2018-01-07 12:43 | Day surgery (SDC) | payer BC ==
[2018-01-06 15:13] VITALS: BMI 35.2
[2018-01-07] MEDS ORDERED: PROPOFOL 20 ML ONE ×2 (14:28)
[2018-01-07] MEDS ORDERED: LIDOCAINE VISCOUS 2% ORAL/TOP 20 ML UNIT-DOSE CUP ONE (14:28)
[2018-01-07] MEDS ORDERED: LIDOCAINE HCL 2% (20ML MULTI-DOSE VIAL) NR ONE (14:28)
[2018-01-07] MEDS ORDERED: LIDOCAINE VISCOUS 2% ORAL/TOP 100 ML BOTTLE MM ONE (15:29)
[2018-01-07 16:02] VITALS: TEMP 98
--- NOTE | 2018-01-07 16:35 | EKG ---
Test Reason : Blood Pressure : / mmHG Vent. Rate : 059 BPM Atrial Rate : 059 BPM P-R Int : 250 ms QRS Dur : 112 ms QT Int : 474 ms P-R-T Axes : 040 -03 -40 degrees QTc Int : 469 ms SINUS BRADYCARDIA WITH 1ST DEGREE A-V BLOCK INCOMPLETE LEFT BUNDLE BRANCH BLOCK MODERATE VOLTAGE CRITERIA FOR LVH, MAY BE NORMAL VARIANT NONSPECIFIC ST AND T WAVE ABNORMALITY ABNORMAL ECG WHEN COMPARED WITH ECG OF 06-DEC-2017 18:08, SINUS RHYTHM HAS REPLACED ATRIAL FLUTTER VENT. RATE HAS DECREASED BY 44 BPM NONSPECIFIC T WAVE ABNORMALITY NOW EVIDENT IN INFERIOR LEADS T WAVE INVERSION NO LONGER EVIDENT IN LATERAL LEADS Confirmed by ALLIE RIVERA MD ([id number]) on 01/07/2018 4:35:31 PM Referred By: Patricia Alvarez Confirmed By:ALLIE RIVERA MD
--- NOTE | 2018-01-07 16:56 | PROC ---
Cardioversion Indication: Atrial fibrillation Risks and Benefits Explained: Yes Consent on Chart: Yes GAY done prior to Cardioversion: Yes (No thrombus) GAY findings: See echo report for details. Patient anticoagulated: Yes (Eliquis.) - Procedure Anesthesiologist present: Yes Medication given: propfol sedation Joules delivered: 120 J x 1. Rhythm post cardioversion: SR. Remarks: Successful cardioversion of atrial fibrillation rhythm to sinus rhythm, HR 60' s. No complications. - Patient instructed to decrease toprol dose to 50 mg daily - event monitor to be ordered as outpatient - f/u Dr. Alvarez, early March. Office to arrange.
[2018-01-07 17:12] VITALS: BP 114/51; PULSE 58
== END 2018-01-07 17:12 | disposition home or self-care (01) ==
LOC: JASU-ENDO 12:43
PROVIDERS: ATTEND Internal Medicine Cardiovascular Disease
PROC: 5A2204Z Restoration of Cardiac Rhythm, Single (ICD-10-PCS; 2018-01-07)
PROC: B246ZZ4 Ultrasonography of Right and Left Heart, Transesophageal (ICD-10-PCS; principal; 2018-01-07 14:00)
DX: I48.91 Unspecified atrial fibrillation (principal); I10 Essential (primary) hypertension; E11.9 Type 2 diabetes mellitus without complications; Z79.84 Long term (current) use of oral hypoglycemic drugs
CPT/HCPCS: 93005; 93010; 93312; 93325

== ENCOUNTER 2019-07-13 09:52 | Day surgery (SDC) | payer OTHER, BC ==
[2019-07-12 13:20] VITALS: BMI 37.0
[2019-07-13 11:48] VITALS: TEMP 97.8
[2019-07-13 13:37] VITALS: BP 106/53; PULSE 67
--- NOTE | 2019-07-14 14:10 | PATH ---
Surgical Pathology Report Patient Name: GABRIELE GUPTA [facility]. Rec. #: [id number] /Age/Gender: 1955 (Age: 64) / F Account: [id number] Location: [facility]-ENDOSCOPY Taken: 07/13/2019 Received: 07/13/2019 Reported: 07/14/2019 Physicians: Kirby Saha M.D. Specimen(s) Received TRANSVERSE COLON POLYP Clinical History Personal history of colon polyp Postoperative diagnosis: Colon polyp Final Diagnosis TRANSVERSE COLON, POLYP, POLYPECTOMY: TUBULAR ADENOMA. Electronically Signed Clementina Kyle M.D. Gross Description Received in formalin, labeled "polyp from transverse colon" is a teresa, irregular portion of soft tissue measuring 0.3 cm. in greatest dimension. The specimen is submitted in toto in one cassette. /07/13/201907/13/2019
== END 2019-07-13 12:50 | disposition home or self-care (01) ==
LOC: JASU-ENDO 09:52
PROVIDERS: ATTEND Internal Medicine Gastroenterology
PROC: 0DBL8ZX Excision of Transverse Colon, Via Natural or Artificial Opening Endoscopic, Diagnostic (ICD-10-PCS; principal; 2019-07-13 11:30)
DX: Z12.11 Encounter for screening for malignant neoplasm of colon (principal); Z86.010 Personal history of colon polyps; D12.3 Benign neoplasm of transverse colon
CPT/HCPCS: 88305-TC

== ENCOUNTER 2019-08-18 19:46 | Observation (INO) | payer OTHER, BC ==
--- NOTE | 2019-08-18 19:52 | PDOC ---
Rapid Medical Evaluation Time Seen by Provider: 08/18/19 19:49 Medical Evaluation: Allergies Allergy/AdvReac Type Severity Reaction Status Date / Time No Known Allergies Allergy Verified 12/06/17 16:11 08/18/19 19:50 I have performed a brief in-person evaluation of this patient. The patient presents with a chief complaint of: Nausea w/ vomiting, diarrhea and body aches since this am. No f/c. No recent travel or sick contacts. Afib on eliquis, NIDDM Pertinent physical exam findings:stable and well martín w/ benign abd I have ordered the following:nothing The patient will proceed to the ED for further evaluation. Discharge Disposition - Diagnosis Viral illness - Referrals - Patient Instructions - Post Discharge Activity
[2019-08-18] MEDS ORDERED: ASPIRIN 325 MG TABLET PO ONE (21:30)
[2019-08-18] MEDS ORDERED: ASPIRIN 325 MG ENTERIC COATED TABLET (FP) ONE (21:33)
[2019-08-18 21:37] LABS: BASO % 0.5 % (0-2.0); EOS % 2.1 % (0-4.5); HEMATOCRIT 40.4 % (32.4-45.2); HEMOGLOBIN 13.2 GM/dL (10.7-15.3); LYMPH % 20.1 % (8-40); MCH 28.8 pg (25.7-33.7); MCHC 32.6 g/dl (32.0-36.0); MEAN CELL VOLUME 88.2 fl (80-96); MEAN PLT VOLUME 7.2 fl (7.5-11.1); MONO % 5.6 % (3.8-10.2); NEUT % 71.7 % (42.8-82.8); PLATELET COUNT 295 K/MM3 (134-434); RBC 4.59 M/mm3 (3.60-5.2); RDW 14.4 % (11.6-15.6); WHITE BLOOD COUNT 7.3 K/mm3 (4.0-10.0)
[2019-08-18 22:04] LABS: ALBUMIN 3.9 g/dl (3.4-5.0); BILIRUBIN,TOTAL 0.3 mg/dL (0.2-1); CALCIUM 8.8 mg/dL (8.5-10.1); CREATININE 0.7 mg/dL (0.55-1.3); POTASSIUM 4.1 mmol/L (3.5-5.1)
--- NOTE | 2019-08-18 22:40 | PDOC ---
History of Present Illness - General Chief Complaint: Pain Stated Complaint: NAUSEA/ VOMITING/ HEADACHE Time Seen by Provider: 08/18/19 19:49 History Source: Patient Exam Limitations: No Limitations Past History - Past Medical History Allergies/Adverse Reactions: Allergies Allergy/AdvReac Type Severity Reaction Status Date / Time No Known Allergies Allergy Verified 08/18/19 19:53 Home Medications: Ambulatory Orders Atorvastatin Ca [Lipitor] 10 mg PO HS 02/17/13 metFORMIN HCL [Glucophage -] 500 mg PO BID 02/17/13 Cholecalciferol (Vitamin D3) [Vitamin D -] 1,000 unit PO DAILY 12/06/17 Apixaban [Eliquis -] 5 mg PO DAILY 01/07/18 Metoprolol Succinate [Toprol XL -] 25 mg PO BID 07/12/19 Diltiazem HCl [Cartia Xt] 120 mg PO DAILY 07/13/19 Anemia: No Asthma: No Cancer: No Cardiac Disorders: Yes (A-FIB) CVA: No COPD: No CHF: No Dementia: No Diabetes: Yes (NIDDM) GI Disorders: No Disorders: No HTN: Yes Hypercholesterolemia: No Liver Disease: No Seizures: No Thyroid Disease: No - Surgical History Abdominal Surgery: No Appendectomy: No Cardiac Surgery: No Cholecystectomy: No Lung Surgery: No Neurologic Surgery: No Orthopedic Surgery: Yes (lt shoulder) - Immunization History Immunization Up to Date: Yes - Psycho Social/Smoking Cessation Hx Smoking Status: Yes Smoking History: Never smoked Have you smoked in the past 12 months: No Number of Cigarettes Smoked Daily: 0 If you are a former smoker, when did you quit?: 20YRS AGO Information on smoking cessation initiated: No Hx Alcohol Use: No Drug/Substance Use Hx: No Substance Use Type: None Hx Substance Use Treatment: No *Physical Exam - Vital Signs Last Vital Signs Temp Pulse Resp BP Pulse Ox 98.3 F 84 17 117/58 L 99 08/18/19 19:50 08/18/19 19:50 08/18/19 19:50 08/18/19 19:50 08/18/19 19:50 - Physical Exam Respiratory/Chest: positive: Lungs Clear, Normal Breath Sounds. negative: Respiratory Distress Cardiovascular: positive: Murmur (2/6 systolic along L 2nd ICS,), Bradycardia, Irregularly Irregular Gastrointestinal/Abdominal: positive: Normal Bowel Sounds, Soft. negative: Tender, Distended, Guarding, Rebound Extremity: negative: Pedal Edema, Swelling, Calf Tenderness Neurologic: positive: Alert, Normal Mood/Affect Heart Score/ECG Review - History History: Slightly suspicious - Electrocardiogram EKG: Significant ST-depression - Age Age: >/= 65 - Risk Factors Risk Factors Heart Score: Yes Hx Hypercholesterolemia, Yes Hx Hypertension, Yes Hx Diabetes Based on the list above the patient has:: >/=3 risk factors or Hx atherosclerotic disease - Troponin Troponin: </= normal limit - Score Heart Score - Total: 6 ED Treatment Course - LABORATORY CBC & Chemistry Diagram: 08/18/19 21:24 08/18/19 21:24 - ADDITIONAL ORDERS Additional order review: Laboratory Results 08/18/19 08/18/19 21:24 21:24 Sodium 139 Potassium 4.1 Chloride 107 Carbon Dioxide 25 Anion Gap 7 L BUN 12.0 Creatinine 0.7 Est GFR (CKD-EPI)AfAm 104.64 Est GFR (CKD-EPI)NonAf 90.29 Random Glucose 102 Calcium 8.8 Total Bilirubin 0.3 AST 16 ALT 26 Alkaline Phosphatase 58 Troponin I < 0.02 Total Protein 7.0 Albumin 3.9 08/18/19 21:24 RBC 4.59 MCV 88.2 MCHC 32.6 RDW 14.4 MPV 7.2 L Neutrophils % 71.7 Lymphocytes % 20.1 D Monocytes % 5.6 Eosinophils % 2.1 Basophils % 0.5 - RADIOLOGY Radiology Studies Ordered: Category Date Time Status CHEST PA & LAT [RAD] Stat Radiology 08/18/19 20:47 Taken - Medications Given in the ED: ED Medications Discontinued Medications Generic Name Dose Route Start Last Admin Trade Name Pachecoq PRN Reason Stop Dose Admin Aspirin 325 mg 08/18/19 21:30 08/18/19 21:32 Asa - PO 08/18/19 21:31 325 mg ONCE ONE Administration Medical Decision Making - Medical Decision Making 64 y/o F hx of HTN, HLD, DM, afib s/p cardioversion 12/2017 (on eliquis) presents with substernal CP this AM at 6:30 AM, sharp in nature, along with mild SOB, nausea, and lightheadedness. Sxs are intermittent in nature. Denies palpitations, vomiting, abd pain, leg swelling, calf pain. Patient Financial Representative: Dr. Lamb. Last stress test was several years ago. EKG: Afib at 60 bpm, TWI leads V4-V6 (not seen on prior EKG) trop x 1 neg Given EKG changes, will admit to hospital for r/o ACS 08/18/19 22:38 Discharge - Discharge Information Problems reviewed: Yes Clinical Impression/Diagnosis: Chest pain Qualifiers: Chest pain type: unspecified Qualified Code(s): R07.9 - Chest pain, unspecified Condition: Stable - Admission Yes - Follow up/Referral Referrals: Vanessa Coreas MD [Primary Care Provider] - - Patient Discharge Instructions - Post Discharge Activity
--- NOTE | 2019-08-19 01:08 | HP ---
CHIEF COMPLAINT: chest pain PCP: Vanessa Mendoza HISTORY OF PRESENT ILLNESS: This is a 64yF with PMH HTN, HLD, Afib on Eliquis and DM who presented to the ED with chest pain. She states the pain began around 630am and is associated with Nausea, one episode vomiting and epigastric pain. She also reports headache at home. ER course was notable for: (1) troponin neg x1 (2) ECG with new TWI lead 1, aVL, V4-V6 (3) Recent Travel: pt denies PAST MEDICAL HISTORY: HTN, HLD, Afib, DM PAST SURGICAL HISTORY: tonsillectomy Social History: Smoking: pt denies Alcohol: occ, holidays, family gatherings Drugs: pt denies Allergies No Known Allergies Allergy (Verified 08/18/19 19:53) HOME MEDICATIONS: 3 Medication Instructions Recorded Atorvastatin Ca [Lipitor] 10 mg PO HS 02/17/13 metFORMIN HCL [Glucophage -] 500 mg PO BID 02/17/13 Cholecalciferol (Vitamin D3) 1,000 unit PO DAILY 12/06/17 [Vitamin D -] Apixaban [Eliquis -] 5 mg PO DAILY 01/07/18 Metoprolol Succinate [Toprol XL -] 25 mg PO BID pt states she takes it 50 daily 07/12/19 Diltiazem HCl [Cartia Xt] 120 mg PO DAILY 07/13/19 REVIEW OF SYSTEMS CONSTITUTIONAL: Absent: fever, chills, diaphoresis, generalized weakness, malaise, loss of appetite, weight change HEENT: Absent: rhinorrhea, nasal congestion, throat pain, throat swelling, difficulty swallowing, mouth swelling, ear pain, eye pain, visual changes CARDIOVASCULAR: Present: chest pain Absent: syncope, palpitations, irregular heart rate, lightheadedness, peripheral edema RESPIRATORY: Absent: cough, shortness of breath, dyspnea with exertion, orthopnea, wheezing, stridor, hemoptysis GASTROINTESTINAL: Present: abdominal pain, nausea, vomiting Absent: abdominal distension, diarrhea, constipation, melena, hematochezia GENITOURINARY: Absent: dysuria, frequency, urgency, hesitancy, hematuria, flank pain, genital pain MUSCULOSKELETAL: Absent: myalgia, arthralgia, joint swelling, back pain, neck pain SKIN: Absent: rash, itching, pallor HEMATOLOGIC/IMMUNOLOGIC: Absent: easy bleeding, easy bruising, lymphadenopathy, frequent infections ENDOCRINE: Absent: unexplained weight gain, unexplained weight loss, heat intolerance, cold intolerance NEUROLOGIC: Absent: headache, focal weakness or paresthesias, dizziness, unsteady gait, seizure, mental status changes, bladder or bowel incontinence PSYCHIATRIC: Absent: anxiety, depression, suicidal or homicidal ideation, hallucinations. PHYSICAL EXAMINATION Vital Signs - 24 hr 3 08/18/19 19:50 Temperature 98.3 F Pulse Rate 84 Respiratory 17 Rate Blood Pressure 117/58 L O2 Sat by Pulse 99 Oximetry (%) GENERAL: Awake, alert, and fully oriented, in no acute distress. HEAD: Normal with no signs of trauma. EYES: Pupils equal, round and reactive to light, extraocular movements intact, sclera anicteric, conjunctiva clear. No lid lag. EARS, NOSE, THROAT: Ears normal, nares patent, oropharynx clear without exudates. Moist mucous membranes. NECK: Normal range of motion, supple without lymphadenopathy, JVD, or masses. LUNGS: Breath sounds equal, clear to auscultation bilaterally. No wheezes, and no crackles. No accessory muscle use. HEART: Regular rate and rhythm, normal S1 and S2 without murmur, rub or gallop. ABDOMEN: Soft, nontender, not distended, normoactive bowel sounds, no guarding, no rebound, no masses. No hepatomegaly or splenomegaly. MUSCULOSKELETAL: Normal range of motion at all joints. No bony deformities or tenderness. No CVA tenderness. UPPER EXTREMITIES: 2+ pulses, warm, well-perfused. No cyanosis. No clubbing. No peripheral edema. LOWER EXTREMITIES: 2+ pulses, warm, well-perfused. No calf tenderness. No peripheral edema. NEUROLOGICAL: Cranial nerves II-XII intact. Normal speech. Normal gait. PSYCHIATRIC: Cooperative. Good eye contact. Appropriate mood and affect. SKIN: Warm, dry, normal turgor, no rashes or lesions noted, normal capillary refill. Laboratory Results - last 24 hr 3 08/18/19 08/18/19 08/18/19 21:24 21:24 21:24 WBC 7.3 RBC 4.59 Hgb 13.2 Hct 40.4 MCV 88.2 MCH 28.8 MCHC 32.6 RDW 14.4 Plt Count 295 MPV 7.2 L Absolute Neuts (auto) 5.2 Neutrophils % 71.7 Lymphocytes % 20.1 D Monocytes % 5.6 Eosinophils % 2.1 Basophils % 0.5 Nucleated RBC % 0 Sodium 139 Potassium 4.1 Chloride 107 Carbon Dioxide 25 Anion Gap 7 L BUN 12.0 Creatinine 0.7 Est GFR (CKD-EPI)AfAm 104.64 Est GFR (CKD-EPI)NonAf 90.29 Random Glucose 102 Calcium 8.8 Total Bilirubin 0.3 AST 16 ALT 26 Alkaline Phosphatase 58 Troponin I < 0.02 Total Protein 7.0 Albumin 3.9 ECG 08/18/19 21:13 Atrial fibrillation LVH with QRS wideneing vent rate 60, QTC 450 new TWI noted lead 1, aVL, v4-v6 when c/w ECG 01/07/2018 ASSESSMENT/PLAN: 64yF with PMH HTN, HLD, Afib, DM presented with chest pain and epigastric pain now being admitted for chest pain, r/o ACS. chest pain r/o ACS - serial troponin, ECG - cardiology consult - npo in case stress test in am - cont home toprol, lipitor - given ASA HTN/HLD - cont home toprol, lipitor afib - rate controlled, cont toprol, diltiazem, eliquis Diabetes - hold home metformin - BGM AC/HS with novolog SS DVT PPX - on treatment dose eliquis FEN - euvolemic, no indication for IVF - BMP in am - NPO except meds Dispo: pt currently requires further observation for management of her emergent condition. Family Medical History Family Hx Cancer: Sister (, breast cancer in her 50s, another sister alive, ovarian ca survivor) Family Hx Cardiac Disorders: Mother (HTN), Father (htn, heart disease) Family Hx Diabetes: Father Family Hx Respiratory Disorders: Mother (emphysema) Family Hx Gastrointestinal Disorder: Brother (alcoholic cirrhosis, age 33) Visit type - Emergency Visit Emergency Visit: Yes ED Registration Date: 08/18/19 Care time: The patient presented to the Emergency Department on the above date and was hospitalized for further evaluation of their emergent condition. - New Patient This patient is new to me today: Yes Date on this admission: 08/18/19 - Critical Care Critical Care patient: No
[2019-08-19] MEDS: INSULIN SLIDING SCALE (NOVOLOG) 1 VIAL SQ SCH ×3 (08:15→17:20)
[2019-08-19] MEDS: metoPROLOL SUCCINATE 25 MG TAB.SR.24H (FP) PO SCH ×2 (10:00→21:11)
[2019-08-19] MEDS: CHOLECALCIFEROL (VIT D3) 1,000 UNIT (25 MCG) TABLET PO SCH (10:00)
[2019-08-19] MEDS: APIXABAN 5 MG TABLET PO SCH ×2 (10:00→21:11)
--- NOTE | 2019-08-19 10:34 | PN ---
Progress Note (short form) - Note Progress Note: pt examined in ER events noted and granddaughter has been having viral illness yesterday pt felt body aches had woken up yesterday with chest pain /tightness fatigue no SOB runny nose, headaches subjective fever and chills yesterday Vital Signs - 24 hr 08/18/19 08/19/19 08/19/19 19:50 00:15 07:10 Temperature 98.3 F 98.2 F 97.8 F Pulse Rate 84 Pulse Rate [ 61 63 Left Apical] Respiratory 17 17 16 Rate Blood Pressure 117/58 L Blood Pressure 114/60 108/58 L [Right Arm] O2 Sat by Pulse 99 99 99 Oximetry (%) Current Medications Generic Name Dose Route Start Last Admin Trade Name Freq PRN Reason Stop Dose Admin Apixaban 5 mg 08/19/19 10:00 Eliquis - PO BID JUAN Atorvastatin Calcium 10 mg 08/19/19 22:00 Lipitor - PO HS [facility] Cholecalciferol 1,000 unit 08/19/19 10:00 Vitamin D3 - PO DAILY JUAN Diltiazem HCl 120 mg 08/19/19 10:00 Cardizem Cd - PO DAILY JUAN Insulin Aspart 1 vial 08/19/19 22:00 Novolog Vial Sliding Scale - SQ HS [facility] Protocol Insulin Aspart 1 vial 08/19/19 07:00 08/19/19 08:15 Novolog Vial Sliding Scale - SQ Not Given TIDAC [facility] Protocol Metoprolol Succinate 25 mg 08/19/19 10:00 Toprol Xl - PO BID [facility] Laboratory Results - last 24 hr 08/18/19 08/18/19 08/18/19 21:24 21:24 21:24 WBC 7.3 RBC 4.59 Hgb 13.2 Hct 40.4 MCV 88.2 MCH 28.8 MCHC 32.6 RDW 14.4 Plt Count 295 MPV 7.2 L Absolute Neuts (auto) 5.2 Neutrophils % 71.7 Lymphocytes % 20.1 D Monocytes % 5.6 Eosinophils % 2.1 Basophils % 0.5 Nucleated RBC % 0 Sodium 139 Potassium 4.1 Chloride 107 Carbon Dioxide 25 Anion Gap 7 L BUN 12.0 Creatinine 0.7 Est GFR (CKD-EPI)AfAm 104.64 Est GFR (CKD-EPI)NonAf 90.29 POC Glucometer Random Glucose 102 Calcium 8.8 Total Bilirubin 0.3 AST 16 ALT 26 Alkaline Phosphatase 58 Creatine Kinase Troponin I < 0.02 Total Protein 7.0 Albumin 3.9 08/19/19 08/19/19 04:48 07:24 WBC RBC Hgb Hct MCV MCH MCHC RDW Plt Count MPV Absolute Neuts (auto) Neutrophils % Lymphocytes % Monocytes % Eosinophils % Basophils % Nucleated RBC % Sodium Potassium Chloride Carbon Dioxide Anion Gap BUN Creatinine Est GFR (CKD-EPI)AfAm Est GFR (CKD-EPI)NonAf POC Glucometer 111 Random Glucose Calcium Total Bilirubin AST ALT Alkaline Phosphatase Creatine Kinase 47 Troponin I < 0.02 Total Protein Albumin S1 S2 irregular Lungs clear Abd-soft, NT, ND No edema no sinus tenderness PLAN cardiac enzymes negative ACS ruled out repeat EKG-- afib, rate is controlled check influenza swab Cardiology eval For stress test tomorrow-- she had one 2017 Problem List - Problems (1) Afib Code(s): I48.91 - UNSPECIFIED ATRIAL FIBRILLATION (2) Chest pain Code(s): R07.9 - CHEST PAIN, UNSPECIFIED Qualifiers: Chest pain type: unspecified Qualified Code(s): R07.9 - Chest pain, unspecified (3) Diabetes Code(s): E11.9 - TYPE 2 DIABETES MELLITUS WITHOUT COMPLICATIONS
[2019-08-19 11:30] LABS: BASO % 1.8 % (0-2.0); HEMATOCRIT 42.6 % (32.4-45.2); HEMOGLOBIN 13.7 GM/dL (10.7-15.3); LYMPH % 28.6 % (8-40); MCH 28.6 pg (25.7-33.7); MCHC 32.3 g/dl (32.0-36.0); MEAN CELL VOLUME 88.6 fl (80-96); MEAN PLT VOLUME 7.2 fl (7.5-11.1); MONO % 11.4 % (3.8-10.2); NEUT % 55.2 % (42.8-82.8); PLATELET COUNT 285 K/MM3 (134-434); RBC 4.81 M/mm3 (3.60-5.2); RDW 14.3 % (11.6-15.6); WHITE BLOOD COUNT 4.3 K/mm3 (4.0-10.0)
[2019-08-19 11:41] LABS: INR 1.29 (0.83-1.09); PROTHROMBIN TIME (PATIENT) 15.3 SEC (9.7-13.0)
--- NOTE | 2019-08-19 11:42 | CON.CARD ---
Cardiology Consult (text) - Consultation Consultation Note: Chief Complaint: cp History of Present Illness: 64 yo female presented with cp. Started yesterday while at rest. Central sharp chest pain. Also felt nausea and dizzy with it. No sob palps loc pnd orthopnea le edema. Sxs resolved in few hours, feels well now. Sees Dr Lamb for cardio. PMH: HTN BASIL--on cpap HPL DM2 afib - Past Medical History ...: No - Alcohol/Substance Use Hx Alcohol Use: No - Smoking History Smoking history: Former smoker Have you smoked in the past 12 months: No Aproximately how many cigarettes per day: 0 If you are a former smoker, when did you quit?: 20YRS AGO Home Medications - Allergies Allergies/Adverse Reactions: Allergies Allergy/AdvReac Type Severity Reaction Status Date / Time No Known Allergies Allergy Verified 08/18/19 19:53 Ambulatory Orders Atorvastatin Ca [Lipitor] 10 mg PO HS 02/17/13 metFORMIN HCL [Glucophage -] 500 mg PO BID 02/17/13 Cholecalciferol (Vitamin D3) [Vitamin D -] 1,000 unit PO DAILY 12/06/17 Apixaban [Eliquis -] 5 mg PO DAILY 01/07/18 Metoprolol Succinate [Toprol XL -] 25 mg PO BID 07/12/19 Diltiazem HCl [Cartia Xt] 120 mg PO DAILY 07/13/19 Review of Systems - Review of Systems Constitutional: denies: Chills, Fever Eyes: denies: Eye Pain HENT: denies: Nasal Congestion Neck: denies: Stiffness Cardiovascular: denies: Palpitations Respiratory: denies: Orthopnea, PND Gastrointestinal: denies: Diarrhea, Rectal Bleeding Genitourinary: denies: Burning, Hematuria Musculoskeletal: denies: Muscle Pain Integumentary: denies: Rash Neurological: reports: Dizziness. denies: Numbness, Seizure, Syncope Endocrine: denies: Excessive Sweating Hematology/Lymphatic: denies: Excessive Bleeding Vital Signs: Vital Signs Period Temp Pulse Resp BP Sys/Gomes Pulse Ox Last 24 Hr 97.8 F-98.3 F 61-84 16-17 108-117/58-60 99-99 Constitutional: Yes: Well Nourished, No Distress Eyes: No: Sclera Icterus HENT: No: Nasal Congestion Neck: No: Decreased ROM Respiratory: Yes: CTA Bilaterally. No: Accessory Muscle Use, Rales, Wheezes Gastrointestinal: Yes: Normal Bowel Sounds. No: Distention, Hepatomegaly, Palpable Mass, Tenderness Cardiovascular: Yes: rrr JVD: No Carotid Bruit: No PMI: Non-Displaced Heart Sounds: Yes: S1, S2. No: Gallop Murmur: No: Systolic Murmur, Diastolic Murmur Musculoskeletal: Yes: Other (No kyphosis) Extremities: No: Cold, Cyanosis Edema: No Peripheral Pulses: 2+ Left Carotid, 2+ Right Carotid, 2+ Left Doralis Pedis, 2+ Right Dorsalis Pedis Integumentary: No: Jaundice diaphoresis Neurological: Yes: Alert, Oriented (x3) Psychiatric: No: Agitated - Other Data Labs, Other Data: Laboratory Last Values WBC 4.3 K/mm3 (4.0-10.0) 08/19/19 11:07 RBC 4.81 M/mm3 (3.60-5.2) 08/19/19 11:07 Hgb 13.7 GM/dL (10.7-15.3) 08/19/19 11:07 Hct 42.6 % (32.4-45.2) 08/19/19 11:07 MCV 88.6 fl (80-96) 08/19/19 11:07 MCH 28.6 pg (25.7-33.7) 08/19/19 11:07 MCHC 32.3 g/dl (32.0-36.0) 08/19/19 11:07 RDW 14.3 % (11.6-15.6) 08/19/19 11:07 Plt Count 285 K/MM3 (134-434) 08/19/19 11:07 MPV 7.2 fl (7.5-11.1) L 08/19/19 11:07 Absolute Neuts (auto) 2.4 K/mm3 (1.5-8.0) 08/19/19 11:07 Neutrophils % 55.2 % (42.8-82.8) D 08/19/19 11:07 Lymphocytes % 28.6 % (8-40) D 08/19/19 11:07 Monocytes % 11.4 % (3.8-10.2) H D 08/19/19 11:07 Eosinophils % 3.0 % (0-4.5) 08/19/19 11:07 Basophils % 1.8 % (0-2.0) D 08/19/19 11:07 Nucleated RBC % 0 % (0-0) 08/19/19 11:07 PT with INR 15.30 SEC (9.7-13.0) H 08/19/19 11:07 INR 1.29 (0.83-1.09) H 08/19/19 11:07 Sodium 139 mmol/L (136-145) 08/18/19 21:24 Potassium 4.1 mmol/L (3.5-5.1) 08/18/19 21:24 Chloride 107 mmol/L (98-107) 08/18/19 21:24 Carbon Dioxide 25 mmol/L (21-32) 08/18/19 21:24 Anion Gap 7 MMOL/L (8-16) L 08/18/19 21:24 BUN 12.0 mg/dL (7-18) 08/18/19 21:24 Creatinine 0.7 mg/dL (0.55-1.3) 08/18/19 21:24 Est GFR (CKD-EPI)AfAm 104.64 08/18/19 21:24 Est GFR (CKD-EPI)NonAf 90.29 08/18/19 21:24 POC Glucometer 106 UNITS (80-120) 08/19/19 11:10 Random Glucose 102 mg/dL (74-106) 08/18/19 21:24 Calcium 8.8 mg/dL (8.5-10.1) 08/18/19 21:24 Total Bilirubin 0.3 mg/dL (0.2-1) 08/18/19 21:24 AST 16 U/L (15-37) 08/18/19 21:24 ALT 26 U/L (13-61) 08/18/19 21:24 Alkaline Phosphatase 58 U/L (45-117) 08/18/19 21:24 Creatine Kinase 47 U/L (26-192) 08/19/19 04:48 Troponin I < 0.02 ng/ml (0.00-0.05) 08/19/19 04:48 Total Protein 7.0 g/dl (6.4-8.2) 08/18/19 21:24 Albumin 3.9 g/dl (3.4-5.0) 08/18/19 21:24 Influenza A (Rapid) Negative (Negative) 08/19/19 10:01 Influenza B (Rapid) Negative (Negative) 08/19/19 10:01 Echo 10/18: nl EF. nl RV. +LAE. echo 11/2017: nl lv/rv size/fn. mod lae. 1+ mac/mr, mod tr. pasp 32. Stress Echo 2016: 10 METs. + ST's. no ischemia. MPI 2013: 7 METs. + STs (non-diagnostic vs baseline). no ischemia. nl EF. Carotids 10/18: minimal, nonob plaque Holter 11/15: NSR, freq APCs, brief atrial runs. no laura.s ECG: afib, rate controlled, LVH with repol abns, similar to prior a/p: cp: -resolved now, somewhat atypical -trops neg x2, no signs acs -cont tele -will check echo and nuclear stress test afib: -rate controlled, cont metoprolol, dilt -cont eliquis HTN: -cont home meds HPL: -cont home statin basil - on cpap at home. consider resuming qhs while here if possible.
--- NOTE | 2019-08-19 11:45 | EKG ---
Test Reason : Blood Pressure : / mmHG Vent. Rate : 060 BPM Atrial Rate : 102 BPM P-R Int : 000 ms QRS Dur : 120 ms QT Int : 450 ms P-R-T Axes : 000 016 232 degrees QTc Int : 450 ms ATRIAL FIBRILLATION LEFT VENTRICULAR HYPERTROPHY WITH QRS WIDENING MARKED ST ABNORMALITY, POSSIBLE INFERIOR SUBENDOCARDIAL INJURY ABNORMAL ECG WHEN COMPARED WITH ECG OF 07-JAN-2018 15:59, ATRIAL FIBRILLATION HAS REPLACED SINUS RHYTHM T WAVE INVERSION NOW EVIDENT IN LATERAL LEADS Confirmed by ERNA VALDERRAMA MD ([id number]) on 08/19/2019 11:45:33 AM Referred By: Confirmed By:ERNA VALDERRAMA MD
--- NOTE | 2019-08-19 11:46 | EKG ---
Test Reason : Blood Pressure : / mmHG Vent. Rate : 065 BPM Atrial Rate : 357 BPM P-R Int : 000 ms QRS Dur : 118 ms QT Int : 432 ms P-R-T Axes : 000 -05 198 degrees QTc Int : 449 ms ATRIAL FIBRILLATION LEFT VENTRICULAR HYPERTROPHY WITH QRS WIDENING MARKED ST ABNORMALITY, POSSIBLE INFERIOR SUBENDOCARDIAL INJURY ABNORMAL ECG WHEN COMPARED WITH ECG OF 18-AUG-2019 21:13, NONSPECIFIC T WAVE ABNORMALITY, IMPROVED IN INFERIOR LEADS Confirmed by ERNA VALDERRAMA MD ([id number]) on 08/19/2019 11:45:48 AM Referred By: Confirmed By:ERNA VALDERRAMA MD
[2019-08-19 11:54] LABS: BLOOD UREA NITROGEN 11.1 mg/dL (7-18); CALCIUM 9.3 mg/dL (8.5-10.1); CREATININE 0.6 mg/dL (0.55-1.3); MAGNESIUM 2.1 mg/dL (1.8-2.4); PHOSPHOROUS 3.5 mg/dL (2.5-4.9); POTASSIUM 4.2 mmol/L (3.5-5.1)
--- NOTE | 2019-08-19 13:31 | ECHO ---
Name: GABRIELE GUPTA Exam:Adult Echocardiogram Study Date: 08/19/2019 12:18 PM Age: 64 yrs Reason For Study: Chest pain Height: 60 in Weight: 183 lb BSA: 1.8 m2 MMode/2D Measurements & Calculations IVSd: 1.2 cm Ao root diam: 2.6 cm LVIDd: 4.0 cm LA dimension: 5.0 cm LVIDs: 2.2 cm ACS: 2.1 cm LVPWd: 1.2 cm EDV(Teich): 68.2 ml LVOT diam: 1.9 cm ESV(Teich): 16.5 ml RV S Luis: 11.0 cm/sec Doppler Measurements & Calculations MV E max luis: 113.5 cm/sec Ao V2 max: 159.6 cm/sec MV A max luis: 42.0 cm/sec Ao max P.2 mmHg MV E/A: 2.7 Ao V2 mean: 106.5 cm/sec MV dec time: 0.14 sec Ao mean P.2 mmHg Ao V2 VTI: 34.1 cm LIZABETH(V,D): 1.5 cm2 LV V1 max P.9 mmHg MR max luis: 275.1 cm/sec LV V1 max: 85.4 cm/sec MR max P.5 mmHg TR max luis: 240.7 cm/sec PA V2 max: 66.6 cm/sec TR max P.5 mmHg PA max P.8 mmHg Med Peak E' Luis: 5.9 cm/sec Med E/e': 19.1 Lat Peak E' Luis: 8.3 cm/sec Lat E/e': 13.7 Procedure A complete two-dimensional transthoracic echocardiogram was performed (2D, M-mode, Doppler and color flow Doppler). The patient was in atrial fibrillation with controlled ventricular rate during the exam. Left Ventricle The left ventricular size, thickness and function are normal. The left ventricular ejection fraction is normal. Ejection Fraction = 55-60%. No regional wall motion abnormalities noted. Right Ventricle The right ventricle is normal in size and function. Atria The left atrium is severely dilated. Right atrial size is normal. Mitral Valve There is trace mitral regurgitation. Tricuspid Valve There is mild tricuspid regurgitation. Right ventricular systolic pressure is normal. Aortic Valve No hemodynamically significant valvular aortic stenosis. No aortic regurgitation is present. Pulmonic Valve There is no pulmonic valvular regurgitation. Great Vessels The aortic root is normal size. Pericardium/Pleura There is no pericardial effusion. Interpretation Summary The patient was in atrial fibrillation with controlled ventricular rate during the exam. The left ventricular size, thickness and function are normal The right ventricle is normal in size and function. There is trace mitral regurgitation. There is mild tricuspid regurgitation. The left atrium is severely dilated. MD Severino Yates 08/19/2019 01:30 PM
[2019-08-19 18:22] VITALS: BMI 35.6
[2019-08-19] MEDS ORDERED: INSULIN SLIDING SCALE (NOVOLOG) 1 VIAL SQ SCH (22:00)
[2019-08-19] MEDS ORDERED: ATORVASTATIN CA 10 MG TABLET (FP) PO SCH (22:00)
[2019-08-20] MEDS: INSULIN SLIDING SCALE (NOVOLOG) 1 VIAL SQ SCH ×2 (06:00→12:55)
[2019-08-20] MEDS ORDERED: REGADENOSON 0.4 MG/5 ML PRE-FILLED SYRINGE IVPUSH ONE ×2 (09:00→10:40)
--- NOTE | 2019-08-20 09:16 | DS ---
Physical Examination Vital Signs: Vital Signs Temperature 98 F 08/20/19 06:50 Pulse Rate 51 L 08/20/19 06:50 Respiratory Rate 18 08/20/19 06:50 Blood Pressure 114/64 08/20/19 06:50 O2 Sat by Pulse Oximetry (%) 98 08/20/19 06:50 Findings/Remarks: pt seen/ examined. chart reviewed no complains feels well Constitutional: Yes: No Distress, Calm Eyes: Yes: Conjunctiva Clear Neck: Yes: Supple Cardiovascular: Yes: Pulse Irregular. No: Regular Rate and Rhythm Respiratory: Yes: CTA Bilaterally Gastrointestinal: Yes: Soft Edema: No Labs: CBC, BMP 08/19/19 11:07 08/19/19 11:07 Discharge Summary Problems reviewed: Yes Reason For Visit: CHEST PAIN Current Active Problems Afib (Acute) Chest pain (Acute) Hospital Course: admitted for cp mi ruled out feels well stress test today likely will be -ve will d/c home if -ve d/w nursing staff also. meds reconcilled Condition: Stable - Instructions Referrals: Manasa Lamb MD [Staff Physician] - 1 Week Vanessa Coreas MD [Primary Care Provider] - Disposition: HOME - Home Medications Comprehensive Discharge Medication List: Ambulatory Orders Atorvastatin Ca [Lipitor] 10 mg PO HS 02/17/13 metFORMIN HCL [Glucophage -] 500 mg PO BID 02/17/13 Cholecalciferol (Vitamin D3) [Vitamin D -] 1,000 unit PO DAILY 12/06/17 Apixaban [Eliquis -] 5 mg PO DAILY 01/07/18 Metoprolol Succinate [Toprol XL -] 25 mg PO BID 07/12/19 Diltiazem HCl [Cartia Xt] 120 mg PO DAILY 07/13/19
--- NOTE | 2019-08-20 10:29 | PN ---
Progress Note, Physician Chief Complaint: seen and examined in Nuclear cardiology She denies any further CP No SOB or palpitations. - Current Medication List Current Medications: Active Medications Apixaban (Eliquis -) 5 mg PO BID [facility] Last Admin: 08/19/19 21:11 Dose: 5 mg Atorvastatin Calcium (Lipitor -) 10 mg PO HS [facility] Last Admin: 08/19/19 21:11 Dose: 10 mg Cholecalciferol (Vitamin D3 -) 1,000 unit PO DAILY [facility] Last Admin: 08/19/19 10:00 Dose: 1,000 unit Diltiazem HCl (Cardizem Cd -) 120 mg PO DAILY [facility] Last Admin: 08/19/19 10:00 Dose: 120 mg Insulin Aspart (Novolog Vial Sliding Scale -) 1 vial SQ HS [facility]; Protocol Last Admin: 08/19/19 21:11 Dose: Not Given Insulin Aspart (Novolog Vial Sliding Scale -) 1 vial SQ TIDAC [facility]; Protocol Last Admin: 08/20/19 06:00 Dose: Not Given Metoprolol Succinate (Toprol Xl -) 25 mg PO BID [facility] Last Admin: 08/19/19 21:11 Dose: 25 mg - Objective Vital Signs: Vital Signs Temperature 97.9 F 08/20/19 08:45 Pulse Rate 55 L 08/20/19 08:45 Respiratory Rate 20 08/20/19 08:45 Blood Pressure 114/68 08/20/19 08:45 O2 Sat by Pulse Oximetry (%) 98 08/20/19 06:50 Constitutional: Yes: No Distress, Calm Eyes: Yes: Conjunctiva Clear Cardiovascular: Yes: Pulse Irregular Respiratory: Yes: CTA Bilaterally Gastrointestinal: Yes: Soft (nt) Edema: No Peripheral Pulses WNL: Yes Neurological: Yes: Alert Labs: CBC, BMP 08/19/19 11:07 08/19/19 11:07 INR, PTT INR 1.29 (0.83-1.09) H 08/19/19 11:07 - ....Imaging EKG: Image Reviewed Assessment/Plan MPI 2014: 7 METs. + STs (non-diagnostic vs baseline). no ischemia. nl EF. Carotids 10/18: minimal, nonob plaque Holter 11/15: NSR, freq APCs, brief atrial runs. no laura.s ECG: afib, rate controlled, LVH with repol abns, similar to prior Lexiscan MPI today: soft tissue attenuation artifact, no ischemia, normal LVEF. a/p: cp: -resolved now, atypical -trops neg x3, no signs acs - echo normal LVEF; nuclear stress test today with soft tissue attenuation artifact, no ischemia and normal LVEF -No further inpatient cardiac evaluation planned. -recommend office follow up in 1 -2 weeks afib: -rate controlled, cont metoprolol, dilt -cont eliquis HTN: -cont home meds HPL: -cont home statin basil - on cpap at home. consider resuming qhs while here if possible.
[2019-08-20] MEDS: metoPROLOL SUCCINATE 25 MG TAB.SR.24H (FP) PO SCH (12:55)
[2019-08-20] MEDS: APIXABAN 5 MG TABLET PO SCH (12:55)
[2019-08-20] MEDS: CHOLECALCIFEROL (VIT D3) 1,000 UNIT (25 MCG) TABLET PO SCH (12:55)
[2019-08-20 15:33] VITALS: BP 116/69; PULSE 74; TEMP 97.7
== END 2019-08-20 17:27 | disposition home or self-care (01) ==
LOC: JER 19:46 → JERBED 22:45 → J4W 08-19 17:34
PROVIDERS: ADMIT Internal Medicine; ATTEND Internal Medicine
PROC: 3E033GC Introduction of Other Therapeutic Substance into Peripheral Vein, Percutaneous Approach (ICD-10-PCS; principal; 2019-08-18)
DX: R07.89 Other chest pain (principal); I10 Essential (primary) hypertension; E78.5 Hyperlipidemia, unspecified; E11.9 Type 2 diabetes mellitus without complications; I48.91 Unspecified atrial fibrillation; G47.33 Obstructive sleep apnea (adult) (pediatric); Z79.01 Long term (current) use of anticoagulants; Z79.84 Long term (current) use of oral hypoglycemic drugs; Z99.81 Dependence on supplemental oxygen
CPT/HCPCS: 36415; 71046-TC-FY; 78452-TC; 80048; 80053; 82550; 82962; 83735; 84100; 84484; 85025; 85610; 87804; 93005; 93010; 93017; 93306-TC; 96374; 99284-25; A9502; G0378; J2785

== ENCOUNTER 2020-06-03 12:43 | Observation (INO) | payer OTHER, BC ==
--- NOTE | 2020-06-03 13:07 | PDOC ---
History of Present Illness - General Chief Complaint: Chest Pain Stated Complaint: CHEST PAIN Time Seen by Provider: 06/03/20 13:06 History Source: Patient Exam Limitations: No Limitations - History of Present Illness Initial Comments: 06/03/20 13:33 65F with PMH of DM, HTN, and Afib (on Eliquis) p/w right sided non-radiating chest pain, described as pressure that occurred at rest and self resolved in 5 minutes. Currently the pain is intermittent pleuritic cp. No associated syncope, sob, n/v, or diaphoresis. Denies recent falls/trauma, orthopnea, LE edema, hx/o DVT/PE. PMH: as in HPI SH: see below Meds: In chart Allergies: NKDA Tob/Etoh/Rec drugs: neg x3 PCP: Specialist: Dr. Lamb (cardiology) ROS GENERAL/CONSTITUTIONAL: No fever or chills. No weakness. HEENT: No change in vision. No ear pain or discharge. No sore throat. CARDIOVASCULAR: +chest pain; no shortness of breath RESPIRATORY: No cough, wheezing, or hemoptysis. GASTROINTESTINAL: No nausea, vomiting, diarrhea or constipation. GENITOURINARY: No dysuria, frequency, or change in urination. MUSCULOSKELETAL: No joint or muscle swelling or pain. No neck or back pain. SKIN: No rash NEUROLOGIC: No headache, vertigo, loss of consciousness, or change in strength/sensation. ENDOCRINE: No increased thirst. No abnormal weight change HEMATOLOGIC/LYMPHATIC: No anemia, easy bleeding, or history of blood clots. ALLERGIC/IMMUNOLOGIC: No hives or skin allergy. PE GENERAL: AOx3; no acute distress HEAD: No signs of trauma, NC/AT EYES: PERRLA, EOMI, sclera anicteric, conjunctiva clear ENT: Auricles normal inspection, hearing grossly normal, nares patent, moist mucosa, oropharynx clear without exudates. NECK: Normal ROM, supple, no LAD, JVD, or masses HEART: Irregularly irregular; normal S1/S2, no murmurs, rubs, or gallops. Peripheral pulses 2+ and equal bilaterally. CHEST WALL: right sided reproducible chest pain LUNGS: No distress, speaks full sentences, clear to auscultation bilaterally ABDOMEN: Soft, nontender. No guarding, no rebound. No masses EXTREMITIES: Normal inspection, Normal range of motion, no edema. NEUROLOGICAL: CNII-XII grossly intact. Normal speech, no focal sensorimotor deficits SKIN: Warm, Dry, normal turgor, no rashes or lesions noted Assessment and Plan 1. ACS r/o 2. PE - low risk Well's score 3. Costochondritis Diaz Blount, PGY1 Emergency Medicine Past History - Medical History Allergies/Adverse Reactions: Allergies Allergy/AdvReac Type Severity Reaction Status Date / Time No Known Allergies Allergy Verified 06/03/20 13:01 Home Medications: Ambulatory Orders Atorvastatin Ca [Lipitor] 10 mg PO HS 02/17/13 metFORMIN HCL [Glucophage -] 500 mg PO BID 02/17/13 Cholecalciferol (Vitamin D3) [Vitamin D -] 1,000 unit PO DAILY 12/06/17 Apixaban [Eliquis -] 5 mg PO BID 01/07/18 Metoprolol Succinate [Toprol XL -] 25 mg PO BID 07/12/19 Diltiazem HCl [Cartia Xt] 120 mg PO DAILY 07/13/19 Anemia: No Asthma: No Cancer: No Cardiac Disorders: Yes (A-FIB) CVA: No COPD: No CHF: No Dementia: No Diabetes: Yes GI Disorders: No Disorders: No HTN: Yes Hypercholesterolemia: Yes Liver Disease: No Seizures: No Thyroid Disease: No - Surgical History Abdominal Surgery: No Appendectomy: No Cardiac Surgery: No Cholecystectomy: No Lung Surgery: No Neurologic Surgery: No Orthopedic Surgery: Yes (lt shoulder) - Reproductive History Is Patient Now?: No - Immunization History Immunization Up to Date: Yes - Psycho-Social/Smoking History Smoking Status: Yes Smoking History: Never smoked Have you smoked in the past 12 months: No Number of Cigarettes Smoked Daily: 0 If you are a former smoker, when did you quit?: 20YRS AGO - Substance Abuse Hx (Audit-C & DAST Scrn) How often the patient has a drink containing alcohol: Monthly or less Score: In Men: 4 or > Positive; In Women: 3 or > Positive: 1 Screen Result (Pos requires Nsg. Audit-10AR): Negative In the last yr the pt used illegal drug/Rx for NonMed reason: No Score: Yes response is considered Positive: 0 Screen Result (Positive result requires Nsg. DAST-10): Negative *Physical Exam - Vital Signs Last Vital Signs Temp Pulse Resp BP Pulse Ox 98 F 80 16 153/66 100 06/03/20 12:45 06/03/20 12:45 06/03/20 12:45 06/03/20 12:45 06/03/20 12:45 Heart Score/ECG Review - History History: Moderately suspicious - Age Age: >/= 65 - Risk Factors Risk Factors Heart Score: Yes Hx Hypertension, Yes Hx Diabetes, Yes Hx Obesity Based on the list above the patient has:: >/=3 risk factors or Hx atherosclerotic disease - Troponin Troponin: </= normal limit - ECG Intrepretation Rhythm: Irregularly Irregular - [place]: Normal - QRS Increased Voltage: Precordial Leads ED Treatment Course - LABORATORY CBC & Chemistry Diagram: 06/03/20 13:35 06/03/20 13:35 Medical Decision Making - Medical Decision Making 06/03/20 13:43 65F p/w right sided non-radiating chest pain, non-exertional, pleuritic. Vitals stable. CP reproducible on exam. -> ACS r/o with troponin, EKG, CXR. Although CP is pleuritic, she was low risk Well's score, no further workup at this time. EKG showed T-wave changes, increased amplitude in V1-5. Otherwise similar to previous EKG with with regular rate, irregular rhythm with afib vs flutter and LVH, ST depressions in inferior leads. 06/03/20 14:59 troponin negative -> pending 2hr troponin -> repeat trop negative Given 325mg ASA 06/03/20 15:16 HEART score [address] Ureña, will have pt admitted for further workup, and also with manager room, Dr. Yates, who stated that they would watch her overnight. Discharge - Discharge Information Problems reviewed: Yes Clinical Impression/Diagnosis: Chest pain Qualifiers: Chest pain type: chest pain on breathing Qualified Code(s): R07.1 - Chest pain on breathing Condition: Stable - Admission Yes - Follow up/Referral - Patient Discharge Instructions - Post Discharge Activity
[2020-06-03 14:22] LABS: BASO % 0.4 % (0-2.0); EOS % 1.7 % (0-4.5); HEMATOCRIT 42.5 % (32.4-45.2); HEMOGLOBIN 13.6 GM/dL (10.7-15.3); MCH 28.6 pg (25.7-33.7); MCHC 32.1 g/dl (32.0-36.0); MEAN CELL VOLUME 89.1 fl (80-96); MEAN PLT VOLUME 7.6 fl (7.5-11.1); NEUT % 55.9 % (42.8-82.8); PLATELET COUNT 317 K/MM3 (134-434); RBC 4.77 M/mm3 (3.60-5.2); RDW 14.1 % (11.6-15.6); WHITE BLOOD COUNT 7.3 K/mm3 (4.0-10.0)
--- NOTE | 2020-06-03 14:46 | PDOC ---
Documentation entered by Clare Montana SCRIBE, acting as scribe for Sharon Quintero MD. Sharon Quintero MD: This documentation has been prepared by the Nan rizvi Brenda, SCRIBE, under my direction and personally reviewed by me in its entirety. I confirm that the documentation accurately reflects all work, treatment, procedures, and medical decision making performed by me. Attending Attestation - Resident Resident Name: Diaz Blount - ED Attending Attestation I have performed the following: I have examined & evaluated the patient, The case was reviewed & discussed with the resident, I agree w/resident's findings & plan, Exceptions are as noted - HPI HPI: 06/03/20 14:24 The patient is a 65 year old female with a significant PMH of HTN, DM and Afib (on eliquis) who presents to the ED for evaluation of intermittent chest pain. The patient notes that the pain is right sided and does not radiate. She notes that the pain is was pressure-like at rest and resolved after 5 minutes. Denies shortness of breath. Denies nausea/vomiting. Denies diarrhea/constipation. Allergies: NKA Cards: Lamb - Physicial Exam PE: 06/03/20 14:41 GENERAL: well-appearing, A/Ox4, no distress, answers questions appropriately, obese, initially appears comfortable but with conversation is slightly more uncomfortable noting right chest pain HEENT: PERRLA, EOMI, moist mucous membranes NECK/BACK: no midline ttp, no spinal step-off or deformity, no hematoma, full ROM, neck supple CARDIOVASCULAR: irregularly irregular but not tachycardia, no MGR, strong peripheral pulses, capillary refill <2 seconds, extremities wwp, no edema LUNGS/RESPIRATORY: no respiratory distress, CTAB GI/ABDOMEN: symmetric prco-gr-mhlk, normoactive BS, soft, no ttp, no midline pulsatile masses : no CVA tenderness MSK/EXTREMITIES: no muscle atrophy, no acute deformity SKIN: warm and dry, no pallor, no jaundice, no rash, no pathologic-appearing bruising, no skin breakdown, no cuts, no lesions NEUROLOGICAL: GCS 15, CN II-XII grossly intact, 5/5 strength proximally and distally, no facial droop - Medical Decision Making 65YOF with chest pain and elevated HEART score, high risk for M&M associated with chest pain. Initial Vital Signs Temp Pulse Resp BP Pulse Ox 98 F 80 16 153/66 100 06/03/20 12:45 06/03/20 12:45 06/03/20 12:45 06/03/20 12:45 06/03/20 12:45 There is concern for ACS in this patient with HEART score >3. Other possibilities are pericarditis, gastritis, PUD, pancreatitis, cholecystitis, cholangitis, colitis, bowel perforation, PNA/bronchitis, musculoskeletal, panic/anxiety, etc. The clinical picture is not consistent with more serious diagnoses like tamponade, aortic dissection, AAA, PTX, PE, esophageal tear, esophagitis (e.g. pill, infectious), esophageal stricture, esophageal FB, etc. Cardiac workup is ordered, troponin negative x1, otherwise no acute or concerning abnormalities on labs. CXR without acute cardiopulmonary processes. EKG with chronic findings and may be secondary to LVH but there is a pattern in the TWI and STD (inferolateral). Patient to be admitted for further observation, workup, consultations, and treatment. Heart Score/ECG Review - History History: Moderately suspicious - Electrocardiogram EKG: Non specific repolarization disturbance - Age Age: >/= 65 - Risk Factors Risk Factors Heart Score: Yes Hx Hypertension, Yes Hx Diabetes, Yes Hx Obesity Based on the list above the patient has:: >/=3 risk factors or Hx atherosclerotic disease - Troponin Troponin: </= normal limit - Score Heart Score - Total: 6 - ECG Intrepretation Comment:: A-fib, ventricular rate 79, normal axis, LVH, inferior and lateral marked TWI and ST depressions same as prior, no ST elevations. Discharge - Discharge Information Problems reviewed: Yes Clinical Impression/Diagnosis: Chest pain Qualifiers: Chest pain type: chest pain on breathing Qualified Code(s): R07.1 - Chest pain on breathing Condition: Guarded - Admission Yes - Follow up/Referral - Patient Discharge Instructions - Post Discharge Activity
[2020-06-03 14:53] LABS: ALK PHOS 67 U/L (45-117); ANION GAP 4 MMOL/L (8-16); BILIRUBIN,TOTAL 0.2 mg/dL (0.2-1); BLOOD UREA NITROGEN 12.8 mg/dL (7-18); CALCIUM 10.2 mg/dL (8.5-10.1); CHLORIDE 105 mmol/L (98-107); CO2 30 mmol/L (21-32); CREATININE 0.7 mg/dL (0.55-1.3); GLUCOSE,RANDOM 85 mg/dL (74-106); POTASSIUM 4.3 mmol/L (3.5-5.1); SGOT/AST 20 U/L (15-37); SGPT/ALT 31 U/L (13-61); SODIUM 139 mmol/L (136-145); TOT PROT 7.6 g/dl (6.4-8.2)
[2020-06-03] MEDS ORDERED: ASPIRIN 81 MG CHEWABLE TABLETS PO ONE (15:09)
[2020-06-03 18:18] VITALS: BMI 35.7
--- NOTE | 2020-06-03 21:11 | HOSP ---
Subjective - Review of Symptoms Events since last encounter: Hospitalist Encounter Was notified by the RN that the patient of Dr. Adeline Ureña was received without orders, was asked to order patient's medications for tonight. Basic orders placed, including nighttime medications Physical Examination Vital Signs: Vital Signs Temperature 98.3 F 06/03/20 17:50 Pulse Rate 83 06/03/20 17:50 Respiratory Rate 18 06/03/20 17:50 Blood Pressure 134/76 06/03/20 17:50 O2 Sat by Pulse Oximetry (%) 99 06/03/20 17:50 Labs: CBC, BMP 06/03/20 13:35 06/03/20 13:35
[2020-06-03] MEDS: ATORVASTATIN CA 10 MG TABLET (FP) PO SCH (22:26)
[2020-06-03] MEDS: APIXABAN 5 MG TABLET PO SCH (22:26)
[2020-06-04 07:07] LABS: BASO % 0.5 % (0-2.0); EOS % 2.1 % (0-4.5); HEMATOCRIT 40.2 % (32.4-45.2); HEMOGLOBIN 13.1 GM/dL (10.7-15.3); MCH 28.9 pg (25.7-33.7); MCHC 32.6 g/dl (32.0-36.0); MEAN CELL VOLUME 88.6 fl (80-96); MEAN PLT VOLUME 7.5 fl (7.5-11.1); NEUT % 57.4 % (42.8-82.8); PLATELET COUNT 280 K/MM3 (134-434); RBC 4.53 M/mm3 (3.60-5.2); RDW 14.1 % (11.6-15.6); WHITE BLOOD COUNT 6.4 K/mm3 (4.0-10.0)
[2020-06-04 07:33] LABS: ALBUMIN 3.4 g/dl (3.4-5.0); BILIRUBIN,TOTAL 0.4 mg/dL (0.2-1); BLOOD UREA NITROGEN 14.2 mg/dL (7-18); CALCIUM 9.1 mg/dL (8.5-10.1); CREATININE 0.6 mg/dL (0.55-1.3); POTASSIUM 4.6 mmol/L (3.5-5.1); TOT PROT 6.7 g/dl (6.4-8.2)
--- NOTE | 2020-06-04 10:24 | HP ---
Admitting History and Physical - Primary Care Physician PCP: Vanessa Coreas - Admission History of Present Illness: Patient seen and examined today. Chart is reviewed. Awakened comfortable Denies any chest pain today Denies shortness of breath anxiety present In summary The patient is a 65 year old female with a significant PMH of HTN, DM and Afib (on eliquis) who presented to the ED for evaluation of intermittent chest pain. The patient notes that the pain is right sided and does not radiate. CT ruled out patient admitted to telemetry for observation I had discussed case with Emergency room resident last night History Source: Patient Limitations to Obtaining History: No Limitations - Past Medical History ...: No - Smoking History Smoking history: Never smoked Have you smoked in the past 12 months: No Aproximately how many cigarettes per day: 0 If you are a former smoker, when did you quit?: 20YRS AGO - Alcohol/Substance Use Hx Alcohol Use: No Home Medications - Allergies Allergies/Adverse Reactions: Allergies Allergy/AdvReac Type Severity Reaction Status Date / Time No Known Allergies Allergy Verified 06/03/20 13:01 - Home Medications Home Medications: Ambulatory Orders Atorvastatin Ca [Lipitor] 10 mg PO HS 02/17/13 metFORMIN HCL [Glucophage -] 750 mg PO BID 02/17/13 Cholecalciferol (Vitamin D3) [Vitamin D -] 1,000 unit PO DAILY 12/06/17 Apixaban [Eliquis -] 5 mg PO BID 01/07/18 Metoprolol Succinate [Toprol XL -] 25 mg PO DAILY 07/12/19 Diltiazem HCl [Cartia Xt] 120 mg PO DAILY 07/13/19 Family Medical History Family Hx Cancer: Sister (, breast cancer in her 50s, another sister alive, ovarian ca survivor) Family Hx Cardiac Disorders: Mother (HTN), Father (htn, heart disease) Family Hx Diabetes: Father Family Hx Respiratory Disorders: Mother (emphysema) Family Hx Gastrointestinal Disorder: Brother (alcoholic cirrhosis, age 33) Review of Systems - Review of Systems Constitutional: reports: No Symptoms Eyes: reports: No Symptoms HENT: reports: No Symptoms Neck: reports: No Symptoms Cardiovascular: reports: Chest Pain Respiratory: reports: No Symptoms Gastrointestinal: reports: No Symptoms Genitourinary: reports: No Symptoms Neurological: reports: No Symptoms Endocrine: reports: No Symptoms Hematology/Lymphatic: reports: No Symptoms Psychiatric: reports: Anxiety Physical Examination Vital Signs: Vital Signs Temperature 97.8 F 06/04/20 10:00 Pulse Rate 69 06/04/20 10:00 Respiratory Rate 18 06/04/20 10:00 Blood Pressure 110/50 L 06/04/20 10:00 O2 Sat by Pulse Oximetry (%) 98 06/04/20 10:00 Constitutional: Yes: No Distress, Anxious Eyes: Yes: Conjunctiva Clear Neck: Yes: Supple Cardiovascular: Yes: Pulse Irregular. No: Regular Rate and Rhythm Respiratory: Yes: CTA Bilaterally Gastrointestinal: Yes: Soft Edema: No Neurological: Yes: WNL Psychiatric: Yes: Alert Labs: CBC, BMP 06/04/20 05:50 06/04/20 05:50 Imaging - Results Chest X-ray: Report Reviewed Problem List - Problems (1) Chest pain Code(s): R07.9 - CHEST PAIN, UNSPECIFIED Qualifiers: Chest pain type: chest pain on breathing Qualified Code(s): R07.1 - Chest pain on breathing; R07.81 - Pleurodynia (2) Afib Code(s): I48.91 - UNSPECIFIED ATRIAL FIBRILLATION (3) Diabetes Code(s): E11.9 - TYPE 2 DIABETES MELLITUS WITHOUT COMPLICATIONS Assessment/Plan atypical chest pain CT ruled out Stable Continue beta olayinka blood pressure on the low side Hold calcium channel olayinka Cardiology to follow Medically stable for discharge--- further workup as per cardiology--- can be done as outpatient discussed with nursing staff also as well as inpatient
[2020-06-04] MEDS: APIXABAN 5 MG TABLET PO SCH ×2 (10:29→21:00)
[2020-06-04] MEDS: ASPIRIN 81 MG CHEWABLE TABLETS PO SCH (10:29)
[2020-06-04] MEDS: metoPROLOL SUCCINATE 25 MG TAB.SR.24H (FP) PO SCH (10:29)
--- NOTE | 2020-06-04 10:29 | DS ---
Physical Examination Vital Signs: Vital Signs Temperature 97.8 F 06/04/20 10:00 Pulse Rate 69 06/04/20 10:00 Respiratory Rate 18 06/04/20 10:00 Blood Pressure 110/50 L 06/04/20 10:00 O2 Sat by Pulse Oximetry (%) 98 06/04/20 10:00 Findings/Remarks: see today's history and physical Labs: CBC, BMP 06/04/20 05:50 06/04/20 05:50 Discharge Summary Problems reviewed: Yes Reason For Visit: CHEST PAIN Current Active Problems Chest pain (Acute) Condition: Stable - Instructions Referrals: Vanessa Coreas MD [Primary Care Provider] - - Home Medications Comprehensive Discharge Medication List: Ambulatory Orders Atorvastatin Ca [Lipitor] 10 mg PO HS 02/17/13 metFORMIN HCL [Glucophage -] 750 mg PO BID 02/17/13 Cholecalciferol (Vitamin D3) [Vitamin D -] 1,000 unit PO DAILY 12/06/17 Apixaban [Eliquis -] 5 mg PO BID 01/07/18 Metoprolol Succinate [Toprol XL -] 25 mg PO DAILY 07/12/19
--- NOTE | 2020-06-04 10:32 | CON.CARD ---
Cardiology Consult (text) - Consultation Consultation Note: Chief Complaint: cp History of Present Illness: 65 yo female presented with cp. Started yesterday while at rest. Right, mild, sharp chest pain. No associated sxs, resolved on own in few minutes. At the sariah e her bp was elevated at home. Feeling better today. No sob palps loc pnd orthopnea le edema. Sees Dr Lamb for cardio. PMH: HTN BASIL--on cpap HPL DM2 afib - Past Medical History ...: No - Alcohol/Substance Use Hx Alcohol Use: No - Smoking History Smoking history: Former smoker Have you smoked in the past 12 months: No Aproximately how many cigarettes per day: 0 If you are a former smoker, when did you quit?: 20YRS AGO Home Medications - Allergies Allergies/Adverse Reactions: Allergies Allergy/AdvReac Type Severity Reaction Status Date / Time No Known Allergies Allergy Verified 06/03/20 13:01 Ambulatory Orders Atorvastatin Ca [Lipitor] 10 mg PO HS 02/17/13 metFORMIN HCL [Glucophage -] 750 mg PO BID 02/17/13 Cholecalciferol (Vitamin D3) [Vitamin D -] 1,000 unit PO DAILY 12/06/17 Apixaban [Eliquis -] 5 mg PO BID 01/07/18 Metoprolol Succinate [Toprol XL -] 25 mg PO DAILY 07/12/19 Review of Systems - Review of Systems per hpi, all others nl Vital Signs: Vital Signs Period Temp Pulse Resp BP Sys/Gomes Pulse Ox Last 24 Hr 97.8 F-98.3 F 52-83 16-24 108-153/50-76 96-100 Constitutional: Yes: Well Nourished, No Distress Eyes: No: Sclera Icterus HENT: No: Nasal Congestion Neck: No: Decreased ROM Respiratory: Yes: CTA Bilaterally. No: Accessory Muscle Use, Rales, Wheezes Gastrointestinal: Yes: Normal Bowel Sounds. No: Distention, Hepatomegaly, Palpable Mass, Tenderness Cardiovascular: Yes: rrr JVD: No Carotid Bruit: No PMI: Non-Displaced Heart Sounds: Yes: S1, S2. No: Gallop Murmur: No: Systolic Murmur, Diastolic Murmur Musculoskeletal: Yes: Other (No kyphosis) Extremities: No: Cold, Cyanosis Edema: No Peripheral Pulses: 2+ Left Carotid, 2+ Right Carotid, 2+ Left Doralis Pedis, 2+ Right Dorsalis Pedis Integumentary: No: Jaundice diaphoresis Neurological: Yes: Alert, Oriented (x3) Psychiatric: No: Agitated - Other Data Labs, Other Data: Laboratory Last Values WBC 6.4 K/mm3 (4.0-10.0) 06/04/20 05:50 RBC 4.53 M/mm3 (3.60-5.2) 06/04/20 05:50 Hgb 13.1 GM/dL (10.7-15.3) 06/04/20 05:50 Hct 40.2 % (32.4-45.2) 06/04/20 05:50 MCV 88.6 fl (80-96) 06/04/20 05:50 MCH 28.9 pg (25.7-33.7) 06/04/20 05:50 MCHC 32.6 g/dl (32.0-36.0) 06/04/20 05:50 RDW 14.1 % (11.6-15.6) 06/04/20 05:50 Plt Count 280 K/MM3 (134-434) 06/04/20 05:50 MPV 7.5 fl (7.5-11.1) 06/04/20 05:50 Absolute Neuts (auto) 3.7 K/mm3 (1.5-8.0) 06/04/20 05:50 Neutrophils % 57.4 % (42.8-82.8) 06/04/20 05:50 Lymphocytes % 30.0 % (8-40) 06/04/20 05:50 Monocytes % 10.0 % (3.8-10.2) 06/04/20 05:50 Eosinophils % 2.1 % (0-4.5) 06/04/20 05:50 Basophils % 0.5 % (0-2.0) 06/04/20 05:50 Nucleated RBC % 0 % (0-0) 06/04/20 05:50 Sodium 142 mmol/L (136-145) 06/04/20 05:50 Potassium 4.6 mmol/L (3.5-5.1) 06/04/20 05:50 Chloride 108 mmol/L (98-107) H 06/04/20 05:50 Carbon Dioxide 27 mmol/L (21-32) 06/04/20 05:50 Anion Gap 7 MMOL/L (8-16) L 06/04/20 05:50 BUN 14.2 mg/dL (7-18) 06/04/20 05:50 Creatinine 0.6 mg/dL (0.55-1.3) 06/04/20 05:50 Est GFR (CKD-EPI)AfAm 109.31 06/04/20 05:50 Est GFR (CKD-EPI)NonAf 94.32 06/04/20 05:50 Random Glucose 100 mg/dL (74-106) 06/04/20 05:50 Calcium 9.1 mg/dL (8.5-10.1) 06/04/20 05:50 Total Bilirubin 0.4 mg/dL (0.2-1) 06/04/20 05:50 AST 18 U/L (15-37) 06/04/20 05:50 ALT 28 U/L (13-61) 06/04/20 05:50 Alkaline Phosphatase 56 U/L (45-117) 06/04/20 05:50 Creatine Kinase 43 U/L (26-192) 06/03/20 13:35 Troponin I < 0.02 ng/ml (0.00-0.05) 06/03/20 22:45 Total Protein 6.7 g/dl (6.4-8.2) 06/04/20 05:50 Albumin 3.4 g/dl (3.4-5.0) 06/04/20 05:50 Triglycerides 76 mg/dL (0-150) 06/04/20 05:50 Cholesterol 126 mg/dL (50-200) 06/04/20 05:50 Total LDL Cholesterol 58 mg/dL (5-100) 06/04/20 05:50 HDL Cholesterol 62 mg/dL (40-60) H 06/04/20 05:50 Echo 10/18: nl EF. nl RV. +LAE. echo 11/2017: nl lv/rv size/fn. mod lae. 1+ mac/mr, mod tr. pasp 32. Stress Echo 2017: 10 METs. + ST's. no ischemia. MPI 2013: 7 METs. + STs (non-diagnostic vs baseline). no ischemia. nl EF. Carotids 10/18: minimal, nonob plaque Holter 11/15: NSR, freq APCs, brief atrial runs. no laura.s ECG: afib, rate controlled, LVH with repol abns, similar to prior tele: afib, rate ok cxr: clear a/p: cp: -resolved now, atypical -trops neg x3, no signs acs -tele benign -this cp was evaluated 08/2019 with unremarkable mibi and echo, does not seem cardiac afib: -rate controlled, cont metoprolol -cont eliquis HTN: -reviewed pts home bp readings for past few weeks. had been on lower side so dilt stopped. with toprol 25 qd bp has been acceptable, occasionally on low side. if persistently low or having dizzy sxs would reduce to toprol 12.5 qd (continuing for rate control) HPL: -stable, cont home statin basil - stable on cpap at home.
[2020-06-04] MEDS ORDERED: PT OWN MED DRAWER 7, Y5N ONE (20:47)
[2020-06-04] MEDS: ATORVASTATIN CA 10 MG TABLET (FP) PO SCH (21:00)
[2020-06-05] MEDS ORDERED: metoPROLOL SUCCINATE 25 MG TAB.SR.24H (FP) ONE (09:15)
[2020-06-05] MEDS ORDERED: APIXABAN 5 MG TABLET ONE (09:16)
[2020-06-05] MEDS ORDERED: ASPIRIN COATED 81 MG TABLET.EC ONE (09:16)
[2020-06-05] MEDS: APIXABAN 5 MG TABLET PO SCH (09:18)
[2020-06-05] MEDS: metoPROLOL SUCCINATE 25 MG TAB.SR.24H (FP) PO SCH (09:18)
[2020-06-05] MEDS: ASPIRIN 81 MG CHEWABLE TABLETS PO SCH (09:18)
--- NOTE | 2020-06-05 11:06 | PN ---
Progress Note (short form) - Note Progress Note: s: no cp sob dizzy; mild palps last night, brief Current Medications Generic Name Dose Route Start Last Admin Trade Name Courtney PRN Reason Stop Dose Admin Apixaban 5 mg 06/03/20 22:00 06/05/20 09:18 Eliquis - PO 5 mg BID JUAN Administration Atorvastatin Calcium 10 mg 06/03/20 22:00 06/04/20 21:00 Lipitor - PO 10 mg HS JUAN Administration Metoprolol Succinate 25 mg 06/04/20 10:00 06/05/20 09:18 Toprol Xl - PO 25 mg DAILY JUAN Administration Vital Signs Period Temp Pulse Resp BP Sys/Gomes Pulse Ox Last 24 Hr 97.2 F-98.2 F 67-84 18-20 108-134/58-76 97-99 Constitutional: Yes: Well Nourished, No Distress Eyes: No: Sclera Icterus HENT: No: Nasal Congestion Neck: No: Decreased ROM Respiratory: Yes: CTA Bilaterally. No: Accessory Muscle Use, Rales, Wheezes Gastrointestinal: Yes: Normal Bowel Sounds. No: Distention, Hepatomegaly, Palpable Mass, Tenderness Cardiovascular: Yes: rrr JVD: No Carotid Bruit: No PMI: Non-Displaced Heart Sounds: Yes: S1, S2. No: Gallop Murmur: No: Systolic Murmur, Diastolic Murmur Extremities: No: Cold, Cyanosis Edema: No Peripheral Pulses: 2+ Left Carotid, 2+ Right Carotid, 2+ Left Doralis Pedis, 2+ Right Dorsalis Pedis Integumentary: No: Jaundice diaphoresis Neurological: Yes: Alert, Oriented (x3) Psychiatric: No: Agitated CBC, BMP 06/04/20 05:50 06/04/20 05:50 Echo 10/18: nl EF. nl RV. +LAE. echo 11/2017: nl lv/rv size/fn. mod lae. 1+ mac/mr, mod tr. pasp 32. Stress Echo 2016: 10 METs. + ST's. no ischemia. MPI 2013: 7 METs. + STs (non-diagnostic vs baseline). no ischemia. nl EF. Carotids 10/18: minimal, nonob plaque Holter 11/15: NSR, freq APCs, brief atrial runs. no laura.s ECG: afib, rate controlled, LVH with repol abns, similar to prior tele: afib, rate ok cxr: clear a/p: cp: -resolved now, atypical -trops neg x3, no signs acs -tele benign -this cp was evaluated 08/2019 with unremarkable mibi and echo, does not seem cardiac afib: -rate controlled, cont metoprolol -cont eliquis, will dc asa (was not taking at home) HTN: -reviewed pts home bp readings for past few weeks. had been on lower side so dilt stopped. with toprol 25 qd bp has been acceptable, occasionally on low side. if persistently low or having dizzy sxs would reduce to toprol 12.5 qd (continuing for rate control) HPL: -stable, cont home statin basil - stable on cpap at home. cardiac toussaint stable for dc
[2020-06-05 11:23] VITALS: BP 136/82; PULSE 84; TEMP 98
--- NOTE | 2020-06-05 11:30 | PN ---
Progress Note, Physician History of Present Illness: feels good no complains was not cleared by cardio yesterday for d/c -- cleared today - Current Medication List Current Medications: Active Medications Apixaban (Eliquis -) 5 mg PO BID [facility] Last Admin: 06/05/20 09:18 Dose: 5 mg Documented by: Atorvastatin Calcium (Lipitor -) 10 mg PO [facility] Last Admin: 06/04/20 21:00 Dose: 10 mg Documented by: Metoprolol Succinate (Toprol Xl -) 25 mg PO DAILY [facility] Last Admin: 06/05/20 09:18 Dose: 25 mg Documented by: - Objective Vital Signs: Vital Signs Temperature 98 F 06/05/20 10:00 Pulse Rate 84 06/05/20 10:00 Respiratory Rate 18 06/05/20 10:00 Blood Pressure 136/82 06/05/20 10:00 O2 Sat by Pulse Oximetry (%) 97 06/05/20 10:00 Constitutional: Yes: No Distress Neck: Yes: Supple Cardiovascular: Yes: Regular Rate and Rhythm Respiratory: Yes: CTA Bilaterally Edema: No Neurological: Yes: Alert Psychiatric: Yes: Alert Labs: CBC, BMP 06/04/20 05:50 06/04/20 05:50 Problem List - Problems (1) Chest pain Code(s): R07.9 - CHEST PAIN, UNSPECIFIED Qualifiers: Chest pain type: chest pain on breathing Qualified Code(s): R07.1 - Chest p ain on breathing; R07.81 - Pleurodynia (2) Afib Code(s): I48.91 - UNSPECIFIED ATRIAL FIBRILLATION (3) Diabetes Code(s): E11.9 - TYPE 2 DIABETES MELLITUS WITHOUT COMPLICATIONS Assessment/Plan atypical chest pain ID ruled out Stable Continue beta olayinka blood pressure on the low side-- better now Held calcium channel olayinka Medically stable for discharge--- discussed with nursing staff also as well as patient.
--- NOTE | 2020-06-05 17:05 | EKG ---
Test Reason : Blood Pressure : / mmHG Vent. Rate : 079 BPM Atrial Rate : 312 BPM P-R Int : 000 ms QRS Dur : 120 ms QT Int : 408 ms P-R-T Axes : 000 008 201 degrees QTc Int : 467 ms ATRIAL FIBRILLATION LEFT VENTRICULAR HYPERTROPHY WITH QRS WIDENING MARKED ST ABNORMALITY, POSSIBLE INFERIOR SUBENDOCARDIAL INJURY ABNORMAL ECG WHEN COMPARED WITH ECG OF 19-AUG-2019 10:07, NO SIGNIFICANT CHANGE WAS FOUND Confirmed by ADALBERTO ROBLES, ELSI ([id number]) on 06/05/2020 5:04:37 PM Referred By: Confirmed By:ELSI GLOVER MD
--- NOTE | 2020-06-09 20:23 | DS ---
Physical Examination Vital Signs: Vital Signs Temperature 98 F 06/05/20 10:00 Pulse Rate 84 06/05/20 10:00 Respiratory Rate 18 06/05/20 10:00 Blood Pressure 136/82 06/05/20 10:00 O2 Sat by Pulse Oximetry (%) 97 06/05/20 10:00 Findings/Remarks: See 06/05 progress note Labs: CBC, BMP 06/04/20 05:50 06/04/20 05:50 Discharge Summary Problems reviewed: Yes Reason For Visit: CHEST PAIN Hospital Course: Admitted for CP Mi ruled out cardiology followed pt d/c home Meds reconcilled f/u in office as scheduled Condition: Guarded - Instructions Referrals: Vanessa Coreas MD [Primary Care Provider] - Disposition: HOME - Home Medications Comprehensive Discharge Medication List: Ambulatory Orders Atorvastatin Ca [Lipitor] 10 mg PO HS 02/17/13 metFORMIN HCL [Glucophage -] 750 mg PO BID 02/17/13 Cholecalciferol (Vitamin D3) [Vitamin D -] 1,000 unit PO DAILY 12/06/17 Apixaban [Eliquis -] 5 mg PO BID 01/07/18 Metoprolol Succinate [Toprol XL -] 25 mg PO DAILY 07/12/19
== END 2020-06-05 13:55 | disposition home or self-care (01) ==
LOC: JER 12:43 → INTOOBSV 15:31 → UNDOADMOB 15:31 → JERBED 15:31 → J4S 20:12 → JERBED 20:12 → J4S 06-04 10:18
PROVIDERS: ADMIT Internal Medicine; ATTEND Internal Medicine
DX: I48.91 Unspecified atrial fibrillation (principal); I10 Essential (primary) hypertension; G47.33 Obstructive sleep apnea (adult) (pediatric); E78.5 Hyperlipidemia, unspecified; E11.9 Type 2 diabetes mellitus without complications; Z99.81 Dependence on supplemental oxygen; E66.01 Morbid (severe) obesity due to excess calories; Z68.35 Body mass index [BMI] 35.0-35.9, adult; Z87.891 Personal history of nicotine dependence
CPT/HCPCS: 36415; 71046-TC-FY; 80053; 80061; 82550; 82962; 83721; 84484; 85025; 93005; 93010; 99285-25; G0378; U0003

== ENCOUNTER 2020-10-14 10:50 | Emergency (ER) | payer OTHER, BC ==
[2020-10-14 11:00] VITALS: BP 130/66; PULSE 73; TEMP 97.8; BMI 35.3
== END 2020-10-14 11:49 | disposition home or self-care (01) ==
LOC: JER 10:50
DX: U07.1 COVID-19 (principal)
CPT/HCPCS: 99281-25

== ENCOUNTER 2022-08-08 04:27 | Day surgery (SDC) | payer OTHER, BC ==
[2022-08-07 12:02] VITALS: BMI 30.9
[2022-08-08 11:21] VITALS: TEMP 98
[2022-08-08 12:13] VITALS: BP 107/62; PULSE 63; RESP 17
== END 2022-08-08 12:15 | disposition home or self-care (01) ==
LOC: JASU-ENDO 04:27
PROVIDERS: ATTEND Internal Medicine Gastroenterology
PROC: 0DBK8ZX Excision of Ascending Colon, Via Natural or Artificial Opening Endoscopic, Diagnostic (ICD-10-PCS; principal; 2022-08-08 10:30)
DX: Z12.11 Encounter for screening for malignant neoplasm of colon (principal); D12.2 Benign neoplasm of ascending colon; Z86.010 Personal history of colon polyps; I10 Essential (primary) hypertension
CPT/HCPCS: 82962; 88305-TC

== ENCOUNTER 2023-06-28 19:10 | Emergency (ER) | payer OTHER, BC ==
[2023-06-28 19:22] VITALS: BP 114/62; PULSE 91; RESP 20; TEMP 98.7; BMI 31.8
[2023-06-28] MEDS ORDERED: ACETAMINOPHEN 500 MG TABLET (FP) PO ONE (19:35)
== END 2023-06-28 20:07 | disposition home or self-care (01) ==
LOC: JER 19:10
DX: R05.9 Cough, unspecified (principal); R49.1 Aphonia; R07.0 Pain in throat; R13.10 Dysphagia, unspecified; J39.2 Other diseases of pharynx; J04.0 Acute laryngitis
CPT/HCPCS: 99283-25

== ENCOUNTER 2024-04-17 18:56 | Emergency (ER) | payer OTHER, BC ==
[2024-04-17 19:14] VITALS: BP 117/77; PULSE 94; RESP 22; TEMP 99.8; BMI 32.2
[2024-04-17] MEDS ORDERED: ACETAMINOPHEN 500 MG TABLET (FP) ONE (19:37)
[2024-04-17] MEDS: ACETAMINOPHEN 500 MG TABLET (FP) PO ONE (20:01)
[2024-04-17 21:25] LABS: HIV INTERPRETATION NEGATIVE (NEGATIVE)
[2024-04-17] MEDS ORDERED: predniSONE 20 MG TABLET (UD) ONE (21:49)
[2024-04-17] MEDS: predniSONE 20 MG TABLET (UD) PO ONE (21:52)
[2024-04-17] MEDS: levoFLOXacin 750 MG TABLET PO SCH (21:52)
== END 2024-04-17 21:53 | disposition home or self-care (01) ==
LOC: JERFT 18:56
DX: J18.9 Pneumonia, unspecified organism (principal); R50.9 Fever, unspecified; R05.9 Cough, unspecified; R09.81 Nasal congestion; Z20.822 Contact with and (suspected) exposure to COVID-19
CPT/HCPCS: 0241U-QW; 36415; 71046-TC-FY; 71250-TC; 86803; 87389; 99285-25

== ENCOUNTER 2024-06-25 08:20 | Emergency (ER) | payer OTHER, BC ==
[2024-06-25 08:31] VITALS: BP 150/86; PULSE 81; RESP 18; TEMP 97.8; BMI 32.8
[2024-06-25] MEDS ORDERED: KETOROLAC TROMETHAMINE 30 MG/1 ML VIAL ONE (09:20)
[2024-06-25] MEDS: KETOROLAC TROMETHAMINE 30 MG/1 ML VIAL IM ONE (09:32)
== END 2024-06-25 10:13 | disposition home or self-care (01) ==
LOC: JERFT 08:20
PROC: 3E0133Z Introduction of Anti-inflammatory into Subcutaneous Tissue, Percutaneous Approach (ICD-10-PCS; principal; 2024-06-25)
DX: M25.561 Pain in right knee (principal)
CPT/HCPCS: 73562-TC-RT-FY; 99284-25

== ENCOUNTER 2024-07-22 23:53 | Inpatient (IN) | payer OTHER, BC ==
[2024-07-23 00:01] VITALS: BMI 32.2
[2024-07-23] MEDS ORDERED: MAG HYDROX/AL HYDROX/SIMETH 30 ML UNIT-DOSE CUP ONE (00:49)
[2024-07-23] MEDS ORDERED: ONDANSETRON 4 MG/2 ML VIAL ONE (00:49)
[2024-07-23] MEDS ORDERED: ACETAMINOPHEN INJECTION 100 ML ONE (00:49)
[2024-07-23] MEDS: ACETAMINOPHEN 1000 MG/100 ML BAG IVPB ONE (01:02)
[2024-07-23] MEDS ORDERED: morphine SULFATE 4 MG/ML VIAL ONE (01:21)
[2024-07-23] MEDS: morphine CARPU-JECT 4 MG/1 ML DISP.SYRIN IVPUSH ONE (01:24)
[2024-07-23 01:25] LABS: BASO % 0.2 % (0-2.0); HEMATOCRIT 38.2 % (32.4-45.2); HEMOGLOBIN 12.4 GM/dL (10.7-15.3); LYMPH % 8.8 % (8-40); MCH 29.4 pg (25.7-33.7); MCHC 32.3 g/dl (32.0-36.0); MEAN CELL VOLUME 90.9 fl (80-96); MEAN PLT VOLUME 7.3 fl (7.5-11.1); MONO % 4.2 % (3.8-10.2); NEUT % 86.8 % (42.8-82.8); PLATELET COUNT 262 10^3/uL (134-434); RBC 4.21 M/mm3 (3.60-5.2); RDW 14.3 % (11.6-15.6)
[2024-07-23 01:33] LABS: INR 1.06 (0.83-1.09)
[2024-07-23 01:35] LABS: ACTIVATED PTT 39.9 SECONDS (25.2-36.5)
[2024-07-23 01:54] LABS: POTASSIUM 4.2 mmol/L (3.5-5.1)
[2024-07-23 01:56] LABS: MAGNESIUM 1.8 mg/dL (1.8-2.4)
[2024-07-23 01:57] LABS: ALBUMIN 4.1 g/dl (3.4-5.0); BLOOD UREA NITROGEN 19.9 mg/dL (7-18); CALCIUM 10.1 mg/dL (8.5-10.1)
[2024-07-23 02:02] LABS: BILIRUBIN,TOTAL 0.7 mg/dL (0.2-1); TOT PROT 7.3 g/dl (6.4-8.2)
[2024-07-23] MEDS: ONDANSETRON 4 MG/2 ML VIAL IVPB ONE (02:03)
[2024-07-23] MEDS: MAG HYDROX/AL HYDROX/SIMETH 30 ML UNIT-DOSE CUP PO ONE (02:03)
[2024-07-23] MEDS ORDERED: KETOROLAC TROMETHAMINE 15 MG/ML VIAL ONE (02:57)
[2024-07-23] MEDS: KETOROLAC TROMETHAMINE 30 MG/1 ML VIAL IVPUSH ONE (03:08)
[2024-07-23 03:37] LABS: URINE APPEARANCE CLEAR; URINE BILIRUBIN NEGATIVE (NEGATIVE); URINE COLOR YELLOW; URINE GLUCOSE (UA) NEGATIVE (NEGATIVE); URINE KETONE 15 mg/dl (NEGATIVE)
[2024-07-23 03:38] LABS: URINE LEUK ESTERASE NEGATIVE (NEGATIVE); URINE NITRITE NEGATIVE (NEGATIVE); URINE PROTEIN 30 (NEGATIVE); URINE UROBILINOGEN 0.2 mg/dL (0.2-1.0)
[2024-07-23] MEDS: SODIUM CHLORIDE 0.9% 500 ML INFUS.BAG IV ONE (04:34)
[2024-07-23] MEDS ORDERED: HEPARIN NA (PORCINE) 5,000 UNITS/ML 1ML VIAL ONE (04:48)
[2024-07-23] MEDS ORDERED: HEPARIN INFUSION - 25,000 UNITS/500 ML INFUS.BAG IVPB ONE (04:53)
[2024-07-23] MEDS ORDERED: METOPROLOL TARTRATE 5 MG/5 ML VIAL IVPUSH PRN (05:00)
[2024-07-23] MEDS: HEPARIN INFUSION - 25,000 UNITS/500 ML INFUS.BAG IVPB SCH (05:13)
[2024-07-23] MEDS: HEPARIN NA (PORCINE) 5,000 UNITS/ML 1ML VIAL IVPUSH ONE (05:13)
[2024-07-23] MEDS ORDERED: ALBUTEROL SO4 0.083% IH SOL 2.5 MG/3 ML VIAL.NEB. NEB PRN (06:16)
[2024-07-23] MEDS ORDERED: MORPHINE SULFATE 2 MG/ML SYRINGE ONE (06:28)
[2024-07-23] MEDS: MORPHINE SULFATE 2 MG/ML SYRINGE IVPUSH ONE (06:43)
[2024-07-23] MEDS: SCOPOLAMINE HYDROBROMIDE 1 PATCH PATCH.TD72 TD SCH (06:43)
[2024-07-23] MEDS: DEXTROSE 5%-0.45% SALINE 1,000 ML IV SCH (06:43)
[2024-07-23] MEDS: METOCLOPRAMIDE HCL INJECTION 10 MG/2 ML VIAL IVPUSH ONE (07:41)
[2024-07-23] MEDS ORDERED: SCOPOLAMINE HYDROBROMIDE 1 PATCH PATCH.TD72 ONE (10:42)
[2024-07-23] MEDS: morphine SULFATE 4 MG/ML VIAL IVPUSH PRN (20:28)
[2024-07-23] MEDS: ONDANSETRON 4 MG/2 ML VIAL IVPUSH PRN (20:28)
[2024-07-24 08:40] LABS: HEMATOCRIT 37.3 % (32.4-45.2); HEMOGLOBIN 12.2 GM/dL (10.7-15.3); MCH 29.6 pg (25.7-33.7); MCHC 32.8 g/dl (32.0-36.0); MEAN CELL VOLUME 90.1 fl (80-96); MEAN PLT VOLUME 7.3 fl (7.5-11.1); PLATELET COUNT 189 10^3/uL (134-434); RBC 4.13 M/mm3 (3.60-5.2); RDW 15.1 % (11.6-15.6); WHITE BLOOD COUNT 17.4 K/mm3 (4.0-10.0)
[2024-07-24 09:01] LABS: POTASSIUM 4.2 mmol/L (3.5-5.1)
[2024-07-24 09:03] LABS: BLOOD UREA NITROGEN 20.8 mg/dL (7-18)
[2024-07-24] MEDS ORDERED: guaiFENesin 200 MG/10 ML 10 ML UNIT-DOSE CUPS PO PRN (11:24)
[2024-07-24] MEDS: ACETAMINOPHEN 1000 MG/100 ML BAG IVPB PRN (11:46)
[2024-07-24] MEDS: ALBUTEROL SO4 2.5/IPRATROPIUM 0.5 INH SOL 3 ML VIAL.NEB. NEB PRN (12:09)
[2024-07-24] MEDS: CEFTRIAXONE 1 G/50 ML PREMIX 50 ML IVPB SCH (13:14)
[2024-07-24] MEDS: ATORVASTATIN CA 10 MG TABLET (FP) PO SCH (21:57)
[2024-07-25 06:55] LABS: BASO % 0.1 % (0-2.0); EOS % 0.3 % (0-4.5); HEMATOCRIT 33.5 % (32.4-45.2); HEMOGLOBIN 10.7 GM/dL (10.7-15.3); LYMPH % 10.1 % (8-40); MCH 29.4 pg (25.7-33.7); MEAN CELL VOLUME 91.8 fl (80-96); MEAN PLT VOLUME 8.2 fl (7.5-11.1); MONO % 7.9 % (3.8-10.2); NEUT % 81.6 % (42.8-82.8); PLATELET COUNT 150 10^3/uL (134-434); RBC 3.65 M/mm3 (3.60-5.2); RDW 14.3 % (11.6-15.6); WHITE BLOOD COUNT 10.8 K/mm3 (4.0-10.0)
[2024-07-25 07:16] LABS: POTASSIUM 4.2 mmol/L (3.5-5.1)
[2024-07-25 07:20] LABS: CALCIUM 8.5 mg/dL (8.5-10.1)
[2024-07-25 07:21] LABS: BLOOD UREA NITROGEN 16.9 mg/dL (7-18)
[2024-07-25 07:24] LABS: CREATININE 0.9 mg/dL (0.55-1.3)
[2024-07-25 07:26] LABS: BILIRUBIN,TOTAL 0.8 mg/dL (0.2-1); TOT PROT 5.7 g/dl (6.4-8.2)
[2024-07-25 07:37] LABS: ALBUMIN 2.8 g/dl (3.4-5.0)
[2024-07-25] MEDS: METHIMAZOLE 5 MG TABLET PO SCH (09:17)
[2024-07-25] MEDS: ENALAPRIL MALEATE 2.5 MG TABLET PO SCH (10:21)
[2024-07-25] MEDS: POLYETHYLENE GLYCOL (HEALTHYLAX) 3350 17 GM PACKET PO SCH (11:15)
[2024-07-25] MEDS: INSULIN (NOVOLOG) ASPART 100 UNITS/ML 10ML VIAL SQ ONE (12:20)
[2024-07-25] MEDS: ACETAMINOPHEN 325 MG TABLET (FP) PO PRN (16:04)
[2024-07-26 11:39] LABS: BLOOD UREA NITROGEN 16.8 mg/dL (7-18)
[2024-07-26 11:41] LABS: CALCIUM 8.9 mg/dL (8.5-10.1)
[2024-07-26] MEDS: DOCUSATE SODIUM 100 MG CAPSULE (FP) PO SCH (21:39)
[2024-07-26 22:50] VITALS: BP 120/65; PULSE 72; TEMP 98.2
[2024-07-26 22:51] VITALS: RESP 20
== END 2024-07-27 00:10 | disposition short-term general hospital (02) | DRG 699 ==
LOC: JER 23:53 → JERBED 07-23 04:35 → J4W 07-23 14:51
PROVIDERS: ADMIT Student in an Organized Health Care Education/Training Program; ATTEND Internal Medicine
DX: N28.0 Ischemia and infarction of kidney (principal); I42.8 Other cardiomyopathies; I48.91 Unspecified atrial fibrillation; Z79.01 Long term (current) use of anticoagulants; I10 Essential (primary) hypertension; E03.9 Hypothyroidism, unspecified; R79.89 Other specified abnormal findings of blood chemistry; E11.9 Type 2 diabetes mellitus without complications; G47.33 Obstructive sleep apnea (adult) (pediatric)
CPT/HCPCS: 36415; 71275-TC; 74174-TC; 74177-TC; 80048; 80053; 80061; 81003; 82962; 83735; 84439; 84443; 84484; 85025; 85027; 85610; 85730; 86160; 86850; 86900; 86901; 87086; 87635; 93005; 93010; 93306-TC; 94640; 99285-25; J0131; J1644; Q9967